=== PATIENT | female | born 1940 | race Caucasian/White ===

== ENCOUNTER 2016-11-24 19:05 | Inpatient (IN) ==
[2016-11-24] MEDS ORDERED: Ipratropium/Albuterol Neb 3 ML IH ONE (19:13)
[2016-11-24 19:45] LABS: Basophils % 0.2 %; Eosinophils # 0.1 K/mcL (0.0-0.6); Eosinophils % 1.3 %; Hematocrit 27.8 % (35.3-44.9); Hemoglobin 7.7 g/dL (11.5-15.4); Immature Granulocytes % 0.5 % (0-4); Lymphocytes # 0.8 K/mcL (0.6-4.6); Lymphocytes % 9.8 %; Mean Corpuscular HGB Conc 27.7 g/dL (31.6-35.5); Mean Corpuscular Hemoglobin 22.8 pg (28.0-33.3); Mean Corpuscular Volume 82.2 fL (83.0-100.0); Mean Platelet Volume 9.8 fL (9.4-12.4); Monocytes # 1.1 K/mcL (0.0-1.3); Monocytes % 13.1 %; Neutrophils # 6.4 K/mcL (1.6-8.9); Platelet Count 281 K/mcL (140-400); Red Blood Count 3.38 M/mcL (3.82-4.97); Red Cell Distribution Width 20.9 % (11.5-14.5); Segmented Neutrophils % 75.1 %
[2016-11-24 19:50] LABS: INR 1.1; Prothrombin Time 12.4 Seconds (9.4-12.1)
[2016-11-24 19:53] LABS: Activated Partial Thrombo Time 30.2 Seconds (26.0-36.0)
[2016-11-24 20:00] LABS: Alanine Aminotransferase 14 Units/L (0-55); Albumin 3.2 g/dL (3.5-5.0); Albumin/Globulin Ratio 0.9 (1.1-2.2); Alkaline Phosphatase 98 Units/L (38-126); Aspartate Amino Transferase 24 Units/L (5-34); BUN/Creatinine Ratio 34 (6-26); Bilirubin,Direct 0.2 mg/dL (0.0-0.5); Bilirubin,Indirect 0.2 mg/dL (0.0-1.2); Bilirubin,Total 0.4 mg/dL (0.2-1.2); Blood Urea Nitrogen 32 mg/dL (7-20); Calcium 9.5 mg/dL (8.6-10.8); Chloride 94 mEq/L (98-109); Globulin 3.5 g/dL (2.4-3.5); Glucose 136 mg/dL (70-99); Osmolality,Calculated 303 (280-300); Potassium 4.3 mEq/L (3.5-4.5); Sodium 142 mEq/L (136-145); Total Protein 6.7 g/dL (6.0-8.3); eGFR For African Americans > 60 (> 60); eGFR For Non-African Americans 59 (> 60)
[2016-11-24 20:02] LABS: Hypochromasia Present (Not Present)
[2016-11-24 20:03] LABS: Carbon Dioxide 41 mEq/L (19-29)
--- NOTE | 2016-11-24 20:03 | Emergency Department Note ---
Disposition Clinical Impression: Altered mental status Qualifiers: Altered mental status type: disorientation Qualified Code(s): R41.0 - Disorientation, unspecified CHF (congestive heart failure) Qualifiers: Congestive heart failure type: systolic Congestive heart failure chronicity: acute Qualified Code(s): I50.21 - Acute systolic (congestive) heart failure Disposition: Admitted As Inpatient Condition: Fair Altered Mental Status HPI - General Chief Complaint: ED Altered Mental Status Stated Complaint: AMS x 1 week Nursing Notes Reviewed: Yes Vital Signs Reviewed: Yes - History of Present Illness HPI Narrative: The patient presents with chief complaint of shortness of breath however according to family the main reason they brought her here was because of confusion. The patient has his shortness of breath for the last week with a cough which she is not sure if it is productive. His shortness of breath is worse with exertion. She has used her inhaler at home with minimal improvement in her symptoms and she denies any associated chest pain. The family states that she has been confused for the last week and I did review her past records showing a recent subdural and follow-up CT showing significant resolution and the patient does not have any localized numbness or weakness of the extremities. She does complain of swelling bilateral lower extremities which is chronic Social history: Smoker, no alcohol - Related Data Home Medications Medication Instructions Recorded Confirmed Alprazolam [Xanax 0.5 MG Tablet] 0.5 mg PO BID PRN 08/17/15 11/24/16 Atorvastatin Calcium [Lipitor] 20 mg PO QPM 08/17/15 11/24/16 Citalopram [CeleXA] 40 mg PO DAILY 08/17/15 11/24/16 Cyclobenzaprine HCl 5 mg PO BID 08/17/15 11/24/16 Furosemide [Lasix] 40 mg PO QAM 08/17/15 11/24/16 Gabapentin [Neurontin] 300 mg PO TID 08/17/15 11/24/16 Hydrochlorothiazide 25 mg PO DAILY 08/17/15 11/24/16 Lisinopril [Zestril] 20 mg PO QAM 08/17/15 11/24/16 Metformin HCl [Glucophage] 1,000 mg PO BID 08/17/15 11/24/16 Olmesartan Medoxomil [Benicar] 20 mg PO QAM 08/17/15 11/24/16 Pantoprazole Sodium [Protonix] 40 mg PO QAM 08/17/15 11/24/16 SitaGLIPtin [Januvia] 100 mg PO QAM 08/17/15 11/24/16 Sotalol [Betapace] 80 mg PO QAM 08/17/15 11/24/16 Temazepam [Restoril] 30 mg PO HS 08/17/15 11/24/16 Albuterol Neb [Proventil Neb] 2.5 mg IH TID PRN 11/02/15 11/24/16 Albuterol Sulfate [Proair Hfa] 2 puff IH Q4H PRN 11/02/15 11/24/16 Cyclobenzaprine [Flexeril] 10 mg PO HS 11/02/15 11/24/16 Fluticasone/Salmeterol [Advair 1 puff IH BID 11/02/15 11/24/16 250-50 Diskus] HYDROcodone/Acet 7.5/325 mg [[place] 1 tab PO TID PRN 11/02/15 11/24/16 7.5-325 mg] [place]-3/Dha/Epa/Fish Oil [Fish Oil 1,000 mg PO BID 11/02/15 11/24/16 Dr 500 mg Softgel] Potassium Chloride [K-Tab ER] 20 meq PO DAILY 11/02/15 11/24/16 Warfarin [Coumadin] 2 mg PO QPM 11/02/15 11/24/16 Oxygen 2 l .ROUTE AD PRN 07/18/16 11/24/16 Ipratropium [place] 1 spray NS DAILY 11/24/16 11/24/16 Allergies Allergy/AdvReac Type Severity Reaction Status Date / Time Penicillins Allergy arm Verified 11/24/16 20:32 swelling Review of Systems: Constitutional: No fever Vision: No blurred vision ENT: No rhinorrhea Respiratory: + cough Allergic: + sneeze/ allergies : No blood in urine GI: No blood in stool Hematologic: No bruising Dermatologic: No skin rash Musculoskeletal: No pain in the extremities Neuro: No numbness of the extremities Past Medical History - Past Medical History Medical history: Reports: atrial fibrillation, COPD, CVA, diabetes, hyperlipidemia, hypertension, other Surgical history: Reports: cataract, cholecystectomy, hysterectomy, pacemaker/ AICD, other Psychiatric history: Reports: anxiety, panic disorder - Social History Smoking Status: Current every day smoker Smokeless Tobacco Status: No Alcohol use: Reports: none Drug use: Reports: none Physical Exam CONSTITUTIONAL: Well-appearing; well-nourished; she is alert but does not know the year or name of the hospital. She does know the month. she does have minimal to moderate respiratory distress HEAD: Normocephalic; atraumatic. EYES: PERRL, EOMI, no scleral icterus NOSE: The nose is normal in appearance without rhinorrhea NECK: Supple without rigidity, no ZULLY RESP: Normal chest excursion with respiration; breath sounds bilateral tight breath sounds and bilateral crackles which are symmetric. No wheezing Abdomen: Non-distended; non-tender, soft, without rigidity, rebound or guarding SKIN: Normal for age and race; warm and dry; no apparent lesions, no rash NEUROLOGICAL: Patient is alert and oriented times three. Cranial nerves III- XII are intact. Sensory and motor functions are intact. Strength is 5/5 for flexion and extension in all 4 extremities. Patellar DTRS are equal and intact. Finger to nose testing is equal and normal bilaterally. Course Vital Signs Temperature 98.1 F 11/24/16 19:10 Pulse Rate 69 11/24/16 19:10 Respiratory Rate 20 11/24/16 19:10 Blood Pressure 125/55 11/24/16 19:10 O2 Sat by Pulse Oximetry 98 11/24/16 19:10 Temperature 98.1 F 11/24/16 19:15 Pulse Rate 69 11/24/16 22:33 Respiratory Rate 20 11/24/16 22:54 Blood Pressure 119/53 11/24/16 22:54 O2 Sat by Pulse Oximetry 100 11/24/16 22:33 Oxygen Delivery Oxygen Delivery Nasal Cannula Altered Mental Status - MDM Narrative Medical decision making narrative: I did review the patient's labs showing a microcytic anemia, she is a smoker and likely has severe COPD, she does use oxygen at home. She does have a CT of the brain ordered. 2007 I did review the patient's test results and the chest x -ray does show signs of congestive heart failure but the CAT scan of the brain does not have evidence of any bleeding. I did see the patient and the family again just a few minutes ago. She will be admitted. I did speak with the hospitalist doctor who accepted the patient for admission. He will be started on Lasix and nitroglycerin paste for the CHF and the hypoxemia from this could be causing some of her increased confusion. 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 2271 - Medical Records Medical records reviewed: Yes I reviewed the patient's medical records. - Lab Data Lab results reviewed: Yes I reviewed the patient's lab results. Result diagrams: 11/24/16 19:38 11/24/16 19:38 Lab Results 11/24/16 11/24/16 11/24/16 Range/Units 19:38 19:38 19:38 WBC 8.5 (4.3-11.1) K/mcL RBC 3.38 L (3.82-4.97) M/mcL Hgb 7.7 L (11.5-15.4) g/dL Hct 27.8 L (35.3-44.9) % MCV 82.2 L (83.0-100.0) fL MCH 22.8 L (28.0-33.3) pg MCHC 27.7 L (31.6-35.5) g/dL RDW 20.9 H (11.5-14.5) % Plt Count 281 (140-400) K/mcL MPV 9.8 (9.4-12.4) fL Immature Gran % 0.5 (0-4) % Seg Neutrophils % 75.1 % Lymphocytes % 9.8 % Monocytes % 13.1 % Eosinophils % 1.3 % Basophils % 0.2 % Neutrophils # 6.4 (1.6-8.9) K/mcL Lymphocytes # 0.8 (0.6-4.6) K/mcL Monocytes # 1.1 (0.0-1.3) K/mcL Eosinophils # 0.1 (0.0-0.6) K/mcL Basophils # 0.0 (0.0-0.2) K/mcL Hypochromasia Present A (Not Present) PT 12.4 H (9.4-12.1) Seconds INR 1.1 APTT 30.2 (26.0-36.0) Seconds Sodium 142 (136-145) mEq/L Potassium 4.3 (3.5-4.5) mEq/L Chloride 94 L (98-109) mEq/L Carbon Dioxide 41 H* (19-29) mEq/L BUN 32 H (7-20) mg/dL Creatinine 0.93 (0.57-1.11) mg/dL Est GFR ( Amer) > 60 (> 60) Est GFR (Non-Af Amer) 59 L (> 60) BUN/Creatinine Ratio 34 H (6-26) Glucose 136 H (70-99) mg/dL Calculated Osmolality 303 H (280-300) Calcium 9.5 (8.6-10.8) mg/dL Total Bilirubin 0.4 (0.2-1.2) mg/dL Direct Bilirubin 0.2 (0.0-0.5) mg/dL Indirect Bilirubin 0.2 (0.0-1.2) mg/dL AST 24 (5-34) Units/L ALT 14 (0-55) Units/L Alkaline Phosphatase 98 (38-126) Units/L Troponin I (0-0.03) ng/mL B-Natriuretic Peptide (0-100) pg/mL Serum Total Protein 6.7 (6.0-8.3) g/dL Albumin 3.2 L (3.5-5.0) g/dL Globulin 3.5 (2.4-3.5) g/dL Albumin/Globulin Ratio 0.9 L (1.1-2.2) Urine Color (Yellow) Urine Clarity (Clear) Urine pH (5.0-8.0) pH Units Ur Specific [place] (1.010-1.025) Urine Protein (Neg-Trace) mg/dL Urine Glucose (UA) (Normal) mg/dL Urine Ketones (Negative) mg/dL Urine Blood (Negative) Urine Nitrite (Negative) Urine Bilirubin (Negative) Urine Urobilinogen (Normal) mg/dL Ur Leukocyte Esterase (Negative) Ur Culture Indicated? (NO) 11/24/16 11/24/16 11/24/16 Range/Units 19:38 19:38 20:53 WBC (4.3-11.1) K/mcL RBC (3.82-4.97) M/mcL Hgb (11.5-15.4) g/dL Hct (35.3-44.9) % MCV (83.0-100.0) fL MCH (28.0-33.3) pg MCHC (31.6-35.5) g/dL RDW (11.5-14.5) % Plt Count (140-400) K/mcL MPV (9.4-12.4) fL Immature Gran % (0-4) % Seg Neutrophils % % Lymphocytes % % Monocytes % % Eosinophils % % Basophils % % Neutrophils # (1.6-8.9) K/mcL Lymphocytes # (0.6-4.6) K/mcL Monocytes # (0.0-1.3) K/mcL Eosinophils # (0.0-0.6) K/mcL Basophils # (0.0-0.2) K/mcL Hypochromasia (Not Present) PT (9.4-12.1) Seconds INR APTT (26.0-36.0) Seconds Sodium (136-145) mEq/L Potassium (3.5-4.5) mEq/L Chloride (98-109) mEq/L Carbon Dioxide (19-29) mEq/L BUN (7-20) mg/dL Creatinine (0.57-1.11) mg/dL Est GFR ( Amer) (> 60) Est GFR (Non-Af Amer) (> 60) BUN/Creatinine Ratio (6-26) Glucose (70-99) mg/dL Calculated Osmolality (280-300) Calcium (8.6-10.8) mg/dL Total Bilirubin (0.2-1.2) mg/dL Direct Bilirubin (0.0-0.5) mg/dL Indirect Bilirubin (0.0-1.2) mg/dL AST (5-34) Units/L ALT (0-55) Units/L Alkaline Phosphatase (38-126) Units/L Troponin I 0.02 (0-0.03) ng/mL B-Natriuretic Peptide 438 H (0-100) pg/mL Serum Total Protein (6.0-8.3) g/dL Albumin (3.5-5.0) g/dL Globulin (2.4-3.5) g/dL Albumin/Globulin Ratio (1.1-2.2) Urine Color Yellow (Yellow) Urine Clarity Clear (Clear) Urine pH 5.0 (5.0-8.0) pH Units Ur Specific [place] 1.011 (1.010-1.025) Urine Protein Negative (Neg-Trace) mg/dL Urine Glucose (UA) Normal (Normal) mg/dL Urine Ketones Negative (Negative) mg/dL Urine Blood Negative (Negative) Urine Nitrite Negative (Negative) Urine Bilirubin Negative (Negative) Urine Urobilinogen Normal (Normal) mg/dL Ur Leukocyte Esterase Negative (Negative) Ur Culture Indicated? NO (NO) TPA Checklist - LKW: 3-4.5 hrs Add. Contraindications Patient/family understanding: The patient/family members have been counseled and understood the risk, benefit , and alternatives of treatment.
[2016-11-24 21:15] LABS: Clarity,Urine Clear (Clear); Color,Urine Yellow (Yellow)
[2016-11-24 21:16] LABS: Bilirubin,Urine Negative (Negative); Blood,Urine Negative (Negative); Glucose,Urine (UA) Normal (Normal); Ketones,Urine Negative (Negative); Leukocyte Esterase,Urine Negative (Negative); Nitrite,Urine Negative (Negative); Protein,Urine Negative (Neg-Trace); Specific Gravity,Urine 1.011 (1.010-1.025); Urobilinogen,Urine Normal (Normal)
[2016-11-24] MEDS ORDERED: Furosemide 40 MG/4 ML VIAL IVP ONE (22:56)
[2016-11-24] MEDS ORDERED: Nitroglycerin 1 INCH/GM PACKET TP ONE (22:56)
[2016-11-25 03:30] LABS: ABG Base Excess 21.9 mEq/L (-2.0 to 3.0); ABG HCO3 49.4 mEQ/L (21-27); ABG Oxygen Saturation 97 % (95-98); ABG PH 7.41 pH Units (7.32-7.45); ABG PO2 95 mmHg (85-104); ABG TCO2 51.8 mEq/L (20-26)
[2016-11-25 03:31] LABS: ABG PCO2 78 mmHg (35-45); Blood Gas FiO2 28 %
--- NOTE | 2016-11-25 03:31 | Internal Med History&Physical ---
Date of Encounter: 11/25/16 Time of Encounter: 02:45 Assessment and Plan (1) Acute exacerbation of CHF (congestive heart failure) Current visit: Yes Status: Acute Recent echo showed LVEF of 65%. BNP is elevated. Treat with IV Lasix. Qualifiers: Congestive heart failure type: unspecified congestive heart failure type Qualified Code(s): I50.9 - Heart failure, unspecified (2) Subdural hematoma Current visit: No Status: Resolved Recent h/o subdural hematoma, which seemed to be resolved. warfarin was held. (3) Diabetes mellitus Current visit: Yes Status: Chronic Start sliding scale insulin Qualifiers: Diabetes mellitus type: type 2 Diabetes mellitus complication status: without complication Diabetes mellitus jail insulin use: without long term care social worker use Qualified Code(s): E11.9 - Type 2 diabetes mellitus without complications (4) Atrial fibrillation Current visit: Yes Status: Chronic EKG shows paced rhythm. COntinue home meds. Warfarin was held prior to this admission, due to recent subdural hematoma Qualifiers: Atrial fibrillation type: persistent Qualified Code(s): I48.1 - Persistent atrial fibrillation (5) Microcytic anemia Current visit: Yes Status: Acute Check Iron studies, B12, folate levels. Check fecal occult blood. Internal Medicine - H&P: HPI Chief complaint: Shortness of breath; confusion Admitted From: Emergency Dept Plans for Post Hospital Care: Home History of present illness: Ms. Fleming is a 76 year old female with h/o Atrial fibrillation, COPD, CVA, diabetes, hyperlipidemia, hypertension, recent subdural hematoma and follow-up CT showing significant resolution. The patient presented to the ER with chief complaint of shortness of breath but apparently the family reported the main reason they brought her here was because of confusion. Patient is confused and is not able to give clinical details. Shortness of breath and confusion for about a week, since she was discharged from the half-way. Shortness of breath is worse with exertion. She has used her inhaler at home with minimal improvement in her symptoms and she denies any associated chest pain. Reports cough with occasional sputum production. She denies fever or chills. Denies abdominal pain, dysuria, hematuria, diarrhea, nausea, vomiting. She was evaluated in the emergency department was taught to have CHF. She was given IV Lasix and is admitted to the hospitalist service for further workup and management. Past Med Surg Social Fam HX - Past Medical History Medical history: atrial fibrillation, cancer, COPD, CVA, diabetes, hyperlipidemia, hypertension, other Psychiatric history: anxiety, panic disorder - Past Surgical History Surgical History: cataract, cholecystectomy, hysterectomy, pacemaker/AICD, other - Social History Smoking Status: Current every day smoker Packs per day: 1 Smokeless Tobacco Status: No Alcohol use: none Drug use: none - Family History Mother Living Status: Hx Family Cardiac Disorders: Yes Hx Family Respiratory Disorders: No Hx Family Cancer: No Hx Family GI Disorders: No Hx Family Endocrine Disorder: Yes Hx Family Neuromuscular Disorders: No Hx Family Neurologic Disorders: No Hx Family HEENT Disorders: No Hx Family Autoimmune Disorders: No Father Living Status: Hx Family Cardiac Disorders: No Hx Family Respiratory Disorders: Yes (EMPHYSEMA.) Hx Family Cancer: Yes Hx Family GI Disorders: No Hx Family Endocrine Disorder: No Hx Family Neuromuscular Disorders: No Hx Family Neurologic Disorders: No Hx Family HEENT Disorders: No Hx Family Autoimmune Disorders: No Internal Medicine - H&P: Meds Alprazolam [Xanax 0.5 MG Tablet] 0.5 mg PO BID PRN 08/17/15 [History] Atorvastatin Calcium [Lipitor] 20 mg PO QPM 08/17/15 [History] Citalopram [CeleXA] 40 mg PO DAILY 08/17/15 [History] Cyclobenzaprine HCl 5 mg PO BID 08/17/15 [History] Furosemide [Lasix] 40 mg PO QAM 08/17/15 [History] Gabapentin [Neurontin] 300 mg PO TID 08/17/15 [History] Hydrochlorothiazide 25 mg PO DAILY 08/17/15 [History] Lisinopril [Zestril] 20 mg PO QAM 08/17/15 [History] Metformin HCl [Glucophage] 1,000 mg PO BID 08/17/15 [History] Olmesartan Medoxomil [Benicar] 20 mg PO QAM 08/17/15 [History] Pantoprazole Sodium [Protonix] 40 mg PO QAM 08/17/15 [History] SitaGLIPtin [Januvia] 100 mg PO QAM 08/17/15 [History] Sotalol [Betapace] 80 mg PO QAM 08/17/15 [History] Temazepam [Restoril] 30 mg PO HS 08/17/15 [History] Albuterol Neb [Proventil Neb] 2.5 mg IH TID PRN 11/02/15 [History] Albuterol Sulfate [Proair Hfa] 2 puff IH Q4H PRN 11/02/15 [History] Cyclobenzaprine [Flexeril] 10 mg PO HS 11/02/15 [History] Fluticasone/Salmeterol [Advair 250-50 Diskus] 1 puff IH BID 11/02/15 [History] HYDROcodone/Acet 7.5/325 mg [[place] 7.5-325 mg] 1 tab PO TID PRN 11/02/15 [ History] [place]-3/Dha/Epa/Fish Oil [Fish Oil Dr 500 mg Softgel] 1,000 mg PO BID 11/02/15 [ History] Potassium Chloride [K-Tab ER] 20 meq PO DAILY 11/02/15 [History] Warfarin [Coumadin] 2 mg PO QPM 11/02/15 [History] Oxygen 2 l .ROUTE AD PRN 07/18/16 [History] Ipratropium [place] 1 spray NS DAILY 11/24/16 [History] Allergies Penicillins Allergy (Verified 11/24/16 20:32) arm swelling All Systems PM: A 10-system review of systems was performed and is negative for pertinent findings except as documented above in the HPI. - Constitutional Vitals: Temp Pulse Resp BP Pulse Ox 97.4 F L 70 20 147/69 98 11/25/16 03:18 11/25/16 03:18 11/25/16 03:18 11/25/16 03:18 11/25/16 03:18 Exam: General: Not in acute distress at the time of my evaluation. Sitting in the bedside chair HEENT: Oral mucosa is dry. No conjunctival palor or scleral icterus Neck: No obvious neck swellings Lungs: B/L basal crackles present Cardiac: Irregular rhythm. No significant murmurs Abdomen: Obese, non tender. Bowel sounds present Genitourinary: Alvarez catheter in place Neurological: Confused. No gross localizing deficits Psych: Not aggressive or agitated Extremities:B/L leg edema Skin: No generalized rash Internal Med - H&P Results - Labs CBC & Chem 7: 11/29/16 03:43 11/29/16 03:43 - EKG Data -: EKG Interpreted by Myself - EKG Data EKG comments: Paced rhythm 11/25/16 07:09 - Impressions ITS Impressions Chest X-Ray 11/24/16 19:11 IMPRESSION: Findings are most consistent with mild CHF D/ / Mik Arnett MD / Mik Arnett MD Interpreting Provider: Mik Arnett MD Head CT 11/24/16 19:12 IMPRESSION: No acute intracranial abnormality. D/ / Marquis Hernandez MD / Marquis Hernandez MD Interpreting Provider: Marquis Hernandez MD
[2016-11-25] MEDS ORDERED: Naloxone 0.4 MG/ML INJ IVP PRN (06:36)
[2016-11-25] MEDS ORDERED: ALPRAZolam 0.5 MG TABLET PO PRN (06:40)
[2016-11-25] MEDS ORDERED: *HR* Dextrose 50 % in Water (Syg) 50 ML SYRINGE IVP PRN (07:06)
[2016-11-25] MEDS ORDERED: D5% in Water 1,000 ML IVC PRN (07:06)
[2016-11-25] MEDS ORDERED: Dextrose Gel 15 GM PO PRN ×2 (07:06)
[2016-11-25] MEDS: Insulin LISPRO 300 UNITS/3 ML VIAL SQ SCH ×4 (07:41→20:55)
[2016-11-25] MEDS: Budesonide/Formoterol 80/4.5 MDI IH SCH ×2 (07:53→20:03)
[2016-11-25] MEDS: Lisinopril 20 MG TABLET PO SCH (08:14)
[2016-11-25] MEDS: Gabapentin 300 MG CAPSULE PO SCH ×3 (08:15→21:35)
[2016-11-25] MEDS: Valsartan 160 MG TABLET PO SCH (08:15)
[2016-11-25] MEDS: *HR* Heparin 5,000 UNIT/ML VIAL SQ SCH ×2 (08:16→16:07)
[2016-11-25] MEDS: Furosemide 40 MG/4 ML VIAL IVP SCH ×2 (08:16→16:08)
[2016-11-25 09:36] LABS: Thyroid Stimulating Hormone 1.723 mcIU/mL (0.350-4.840)
--- NOTE | 2016-11-25 10:18 | Event Note ---
Date of Encounter: 11/25/16 Time of Encounter: 09:00 Patient seen and examined. On examination, patient sitting upright in her bed. Patient complaining of pain to her neck and back consistent with her normal arthritic pain. She states she was unable to get any sleep last night. She does not remember if she breakfast. She is not sure what year it is. She is aware that she is in [facility] for the most part, she is able to answer simple questions.. No family is present so I do not know what her baseline is. Chest x-ray consistent with mild CHF, she denies shortness of breath. Head CT negative. Urinalysis negative. Profound anemia noted which appears new and worsened since June 2016. Hemoglobin currently 7.7. Alvarez catheter in place, gross hematuria noted. Patient has a history of bladder cancer with tumor removal on 05/18/[address] Calixto. Will investigate other causes of anemia with guiaic, folate, B12, iron panel though I suspect her hematuria may be playing a lama role. She is unable to state whether or not she has noticed blood in her urine but she states that she does not think so. We will bring urology on board. We will continue to trend her blood counts and transfuse if indicated. Vital signs are stable. CO2 retention also noted. On examination, fair to good aeration throughout. We will continue to trend her ABGs. ITS Impressions Chest X-Ray 11/24/16 19:11 IMPRESSION: Findings are most consistent with mild CHF D/ / Mik Arnett MD / Mik Arnett MD Interpreting Provider: Mik Arnett MD Elecronically signed by Mik Arnett MD on 11/24/2016 20:25:[address] 11/24/16 19:12 IMPRESSION: No acute intracranial abnormality. D/ / Marquis Hernandez MD / Marquis Hernandez MD Interpreting Provider: Marquis Hernandez MD
[2016-11-25 11:21] LABS: Folate 12.3 ng/mL (7.0-31.4)
[2016-11-25 11:27] LABS: Hematocrit 26.9 % (35.3-44.9); Hemoglobin 7.5 g/dL (11.5-15.4)
--- NOTE | 2016-11-25 12:56 | Urology - Consult Note ---
Date of Encounter: 11/25/16 Time of Encounter: 12:54 - Assessment and Plan (1) Hematuria Current Visit: No Status: Acute Assessment and plan: 76-year-old woman with mild hematuria. At this point, she does not require a three-way catheter and I think her urine will clear with just standard drainage. We will closely monitor. I'm not sure if the hematuria is the source for her anemia. She is going to be transfused today. I will follow along. Urology CN:HPI Consult date: 11/25/16 Reason for consult Urology: Gross Hematuria Requesting physician: Anaya Cardenas History of present illness: 76-year-old woman with a history of low-grade low stage bladder cancer from May 18, 2016 was admitted for anemia. She had a catheter placed. Her initial urine on November 24, 2016 was otherwise clear. Overnight, she began to have some hematuria. She denies having any hematuria prior to this hospital stay since her operation. She denies any abdominal pain or lightheadedness. Past Med Surg Social Fam HX - Past Medical History Medical history: atrial fibrillation, cancer, COPD, CVA, diabetes, hyperlipidemia, hypertension, other Psychiatric history: anxiety, panic disorder - Past Surgical History Surgical History: cataract, cholecystectomy, hysterectomy, pacemaker/AICD, other - Social History Smoking Status: Current every day smoker Packs per day: 1 Smokeless Tobacco Status: No Alcohol use: none Drug use: none - Family History Mother Living Status: Hx Family Cardiac Disorders: Yes Hx Family Respiratory Disorders: No Hx Family Cancer: No Hx Family GI Disorders: No Hx Family Endocrine Disorder: Yes Hx Family Neuromuscular Disorders: No Hx Family Neurologic Disorders: No Hx Family HEENT Disorders: No Hx Family Autoimmune Disorders: No Father Living Status: Hx Family Cardiac Disorders: No Hx Family Respiratory Disorders: Yes (EMPHYSEMA.) Hx Family Cancer: Yes Hx Family GI Disorders: No Hx Family Endocrine Disorder: No Hx Family Neuromuscular Disorders: No Hx Family Neurologic Disorders: No Hx Family HEENT Disorders: No Hx Family Autoimmune Disorders: No Medications and Allergies Alprazolam [Xanax 0.5 MG Tablet] 0.5 mg PO BID PRN 08/17/15 [History] Atorvastatin Calcium [Lipitor] 20 mg PO QPM 08/17/15 [History] Citalopram [CeleXA] 40 mg PO DAILY 08/17/15 [History] Cyclobenzaprine HCl 5 mg PO BID 08/17/15 [History] Furosemide [Lasix] 40 mg PO QAM 08/17/15 [History] Gabapentin [Neurontin] 300 mg PO TID 08/17/15 [History] Hydrochlorothiazide 25 mg PO DAILY 08/17/15 [History] Lisinopril [Zestril] 20 mg PO QAM 08/17/15 [History] Metformin HCl [Glucophage] 1,000 mg PO BID 08/17/15 [History] Olmesartan Medoxomil [Benicar] 20 mg PO QAM 08/17/15 [History] Pantoprazole Sodium [Protonix] 40 mg PO QAM 08/17/15 [History] SitaGLIPtin [Januvia] 100 mg PO QAM 08/17/15 [History] Sotalol [Betapace] 80 mg PO QAM 08/17/15 [History] Temazepam [Restoril] 30 mg PO HS 08/17/15 [History] Albuterol Neb [Proventil Neb] 2.5 mg IH TID PRN 11/02/15 [History] Albuterol Sulfate [Proair Hfa] 2 puff IH Q4H PRN 11/02/15 [History] Cyclobenzaprine [Flexeril] 10 mg PO HS 11/02/15 [History] Fluticasone/Salmeterol [Advair 250-50 Diskus] 1 puff IH BID 11/02/15 [History] HYDROcodone/Acet 7.5/325 mg [[place] 7.5-325 mg] 1 tab PO TID PRN 11/02/15 [ History] [place]-3/Dha/Epa/Fish Oil [Fish Oil Dr 500 mg Softgel] 1,000 mg PO BID 11/02/15 [ History] Potassium Chloride [K-Tab ER] 20 meq PO DAILY 11/02/15 [History] Warfarin [Coumadin] 2 mg PO QPM 11/02/15 [History] Oxygen 2 l .ROUTE AD PRN 07/18/16 [History] Ipratropium [place] 1 spray NS DAILY 11/24/16 [History] Allergies Penicillins Allergy (Verified 11/24/16 20:32) arm swelling Review of Systems - Constitutional no chills, no fever(s) - EENT Nose, mouth and throat: no dizziness - Cardiovascular no chest pain - Respiratory no dyspnea - Gastrointestinal no nausea, no vomiting - Genitourinary Genitourinary: hematuria, no flank pain - Musculoskeletal no back pain - Integumentary no erythema, no rash - Neurological no weakness - Psychiatric no suicidal ideation - Hematologic/Lymphatic no easy bleeding - Allergic/Immunologic no wheezing Exam Initial Vital Signs Temp Pulse Resp BP Pulse Ox 98.1 F 69 20 125/55 98 11/24/16 19:10 11/24/16 19:10 11/24/16 19:10 11/24/16 19:10 11/24/16 19:10 - General physical appearance Present: well developed, well nourished, no distress - Eyes Absent: icteric - ENT Present: normal nares - Neck Present: trachea midline - Respiratory Present: normal respiratory effort - Cardiovascular Cardiovascular exam IM: RRR - Abdomen Abdomen: Present: soft - Genitourinary Present: other (Alvarez catheter in place with light pink-colored urine.) Urology Results - Labs 11/25/16 11:21 11/24/16 19:38 Abnormal lab results RBC 3.38 M/mcL (3.82-4.97) L 11/24/16 19:38 Hgb 7.5 g/dL (11.5-15.4) L 11/25/16 11:21 Hct 26.9 % (35.3-44.9) L 11/25/16 11:21 MCV 82.2 fL (83.0-100.0) L 11/24/16 19:38 MCH 22.8 pg (28.0-33.3) L 11/24/16 19:38 MCHC 27.7 g/dL (31.6-35.5) L 11/24/16 19:38 RDW 20.9 % (11.5-14.5) H 11/24/16 19:38 Hypochromasia Present (Not Present) A 11/24/16 19:38 PT 12.4 Seconds (9.4-12.1) H 11/24/16 19:38 ABG pCO2 78 mmHg (35-45) H* 11/25/16 03:22 ABG HCO3 49.4 mEQ/L (21-27) H 11/25/16 03:22 ABG Total CO2 51.8 mEq/L (20-26) H 11/25/16 03:22 ABG Base Excess 21.9 mEq/L (-2.0 to 3.0) H 11/25/16 03:22 Chloride 94 mEq/L (98-109) L 11/24/16 19:38 Carbon Dioxide 41 mEq/L (19-29) H* 11/24/16 19:38 BUN 32 mg/dL (7-20) H 11/24/16 19:38 Est GFR (Non-Af Amer) 59 (> 60) L 11/24/16 19:38 BUN/Creatinine Ratio 34 (6-26) H 11/24/16 19:38 Glucose 136 mg/dL (70-99) H 11/24/16 19:38 POC Glucose 151 (58-89) H 11/25/16 11:01 Calculated Osmolality 303 (280-300) H 11/24/16 19:38 Iron 18 mcg/dL (50-170) L 11/25/16 08:55 % Saturation 3 % (15-50) L 11/25/16 08:55 Transferrin 385 mg/dL (180-382) H 11/25/16 08:55 B-Natriuretic Peptide 438 pg/mL (0-100) H 11/24/16 19:38 Albumin 3.2 g/dL (3.5-5.0) L 11/24/16 19:38 Albumin/Globulin Ratio 0.9 (1.1-2.2) L 11/24/16 19:38 Thyroid panel 11/25/16 Range/Units 08:55 TSH 1.723 (0.350-4.840) mcIU/mL Pituitary panel 11/25/16 Range/Units 08:55 TSH 1.723 (0.350-4.840) mcIU/mL All other labs normal. Consult Discharge Plan - Plan Referrals: Andres Gleason MD [Primary Care Provider] - (hospital follow up webrequested ) NO,PCP [Non-Partnered Physician] -
[2016-11-25] MEDS ORDERED: NON-FORMULARY MEDICATION 1 EACH EACH (Oxygen [Oxygen] 2 L) PRN (13:22)
[2016-11-25] MEDS ORDERED: *HR* Morphine 2 MG/ML SYRINGE IVP PRN (13:24)
[2016-11-25] MEDS ORDERED: Acetaminophen 325 MG TABLET PO PRN (13:24)
[2016-11-25] MEDS: *HR* HYDROcodone/Acet 7.5/325 mg TABLET PO PRN (13:58)
[2016-11-25 17:17] LABS: ABG Base Excess 26.2 mEq/L (-2.0 to 3.0); ABG HCO3 53.5 mEQ/L (21-27); ABG Oxygen Saturation 97 % (95-98); ABG PH 7.45 pH Units (7.32-7.45); ABG PO2 83 mmHg (85-104); ABG TCO2 55.9 mEq/L (20-26)
[2016-11-25 17:19] LABS: ABG PCO2 77 mmHg (35-45); Blood Gas FiO2 28 %
[2016-11-25] MEDS: Temazepam 15 MG CAPSULE PO SCH (21:34)
[2016-11-26] MEDS: *HR* Heparin 5,000 UNIT/ML VIAL SQ SCH ×2 (02:44→08:14)
[2016-11-26 05:45] LABS: Basophils % 0.3 %; Eosinophils # 0.1 K/mcL (0.0-0.6); Eosinophils % 1.7 %; Hematocrit 25.6 % (35.3-44.9); Hemoglobin 7.2 g/dL (11.5-15.4); Immature Granulocytes % 0.3 % (0-4); Lymphocytes # 1.3 K/mcL (0.6-4.6); Lymphocytes % 19.4 %; Mean Corpuscular HGB Conc 28.1 g/dL (31.6-35.5); Mean Corpuscular Hemoglobin 22.2 pg (28.0-33.3); Mean Platelet Volume 9.6 fL (9.4-12.4); Monocytes % 15.8 %; Neutrophils # 4.1 K/mcL (1.6-8.9); Platelet Count 254 K/mcL (140-400); Red Blood Count 3.24 M/mcL (3.82-4.97); Red Cell Distribution Width 20.7 % (11.5-14.5); Segmented Neutrophils % 62.5 %
[2016-11-26 06:04] LABS: BUN/Creatinine Ratio 31 (6-26); Blood Urea Nitrogen 24 mg/dL (7-20); Calcium 9.1 mg/dL (8.6-10.8); Chloride 90 mEq/L (98-109); Glucose 87 mg/dL (70-99); Osmolality,Calculated 295 (280-300); Potassium 3.4 mEq/L (3.5-4.5); Sodium 141 mEq/L (136-145); eGFR For African Americans > 60 (> 60); eGFR For Non-African Americans > 60 (> 60)
[2016-11-26 06:05] LABS: Anisocytosis 1+ (Not Present); Hypochromasia Present (Not Present); Platelet Estimate Normal (Normal)
[2016-11-26 06:10] LABS: Carbon Dioxide 47 mEq/L (19-29)
--- NOTE | 2016-11-26 06:50 | Urology Progress Note ---
Date of Encounter: 11/26/16 Time of Encounter: 06:49 - Assessment and Plan (1) Hematuria Current Visit: No Status: Acute Assessment and plan: 76 year old woman with hematuria. Urine is getting more clear. Will continue catheter to maximize drainage. Will follow along. Plan for outpatient cystoscopy. Progress Note Narrative: Doing well this morning. Up to chair, eating breakfast. Urine has been draining a light peach color. Objective Initial Vital Signs Temp Pulse Resp BP Pulse Ox 98.1 F 69 20 125/55 98 11/24/16 19:10 11/24/16 19:10 11/24/16 19:10 11/24/16 19:10 11/24/16 19:10 - General physical appearance Present: well developed, well nourished, no distress - Respiratory Present: normal respiratory effort - Abdomen Present: soft - Genitourinary Urine Appearance: Present: Hematuria (light peach.) - Labs 11/26/16 04:49 11/26/16 04:49 Diabetes panel 11/26/16 Range/Units 04:49 Sodium 141 (136-145) mEq/L Potassium 3.4 L (3.5-4.5) mEq/L Chloride 90 L (98-109) mEq/L Carbon Dioxide 47 H* (19-29) mEq/L BUN 24 H (7-20) mg/dL Creatinine 0.77 (0.57-1.11) mg/dL Glucose 87 (70-99) mg/dL Calcium 9.1 (8.6-10.8) mg/dL Thyroid panel 11/25/16 Range/Units 08:55 TSH 1.723 (0.350-4.840) mcIU/mL Calcium panel 11/26/16 Range/Units 04:49 Calcium 9.1 (8.6-10.8) mg/dL Pituitary panel 11/25/16 11/26/16 Range/Units 08:55 04:49 Sodium 141 (136-145) mEq/L Potassium 3.4 L (3.5-4.5) mEq/L Chloride 90 L (98-109) mEq/L Carbon Dioxide 47 H* (19-29) mEq/L BUN 24 H (7-20) mg/dL Creatinine 0.77 (0.57-1.11) mg/dL Glucose 87 (70-99) mg/dL Calcium 9.1 (8.6-10.8) mg/dL TSH 1.723 (0.350-4.840) mcIU/mL Adrenal panel 11/26/16 Range/Units 04:49 Sodium 141 (136-145) mEq/L Potassium 3.4 L (3.5-4.5) mEq/L Chloride 90 L (98-109) mEq/L Carbon Dioxide 47 H* (19-29) mEq/L BUN 24 H (7-20) mg/dL Creatinine 0.77 (0.57-1.11) mg/dL Glucose 87 (70-99) mg/dL Calcium 9.1 (8.6-10.8) mg/dL Consult Discharge Plan - Plan Referrals: Andres Gleason MD [Primary Care Provider] - (hospital follow up webrequested ) NO,PCP [Non-Partnered Physician] -
[2016-11-26] MEDS: Budesonide/Formoterol 80/4.5 MDI IH SCH ×2 (07:57→19:57)
[2016-11-26] MEDS: Insulin LISPRO 300 UNITS/3 ML VIAL SQ SCH ×4 (08:06→21:26)
[2016-11-26] MEDS: Furosemide 40 MG/4 ML VIAL IVP SCH ×2 (08:13→16:48)
[2016-11-26] MEDS: Gabapentin 300 MG CAPSULE PO SCH ×3 (08:14→21:14)
[2016-11-26] MEDS: Valsartan 160 MG TABLET PO SCH (08:14)
[2016-11-26] MEDS: Lisinopril 20 MG TABLET PO SCH (08:14)
[2016-11-26] MEDS: *HR* HYDROcodone/Acet 7.5/325 mg TABLET PO PRN ×2 (08:18→16:48)
--- NOTE | 2016-11-26 14:20 | Internal Med Progress Note ---
Date of Encounter: 11/26/16 Time of Encounter: 10:30 - Assessment and plan (1) Altered mental status Current Visit: Yes Status: Resolved Assessment and plan: Patient is now alert and oriented 3 and back to her baseline. Patient stating she feels like herself again. She is now denying shortness of breath above her norm. Chest x-ray revealing mild CHF and the patient has been successfully diuresed. No pedal edema. Head CT negative. Urinalysis negative. Initial concern for hematuria given that she had a bladder tumor removed in April 2016 however her urine has cleared. Urology on board. She is retaining some CO2 but is compensated and stable. Awaiting stool guaiac, we will trend blood counts. Disposition unclear at this time. Appears as if she was admitted and a ECF for rehabilitation and was only home for a week when she was brought back in. ITS Impressions Chest X-Ray 11/24/16 19:11 IMPRESSION: Findings are most consistent with mild CHF D/ / Mik Arnett MD / Mik Arnett MD Interpreting Provider: Mik Arnett MD Head CT 11/24/16 19:12 IMPRESSION: No acute intracranial abnormality. D/ / Marquis Hernandez MD / Marquis Hernandez MD Interpreting Provider: Marquis Hernandez MD (2) Anemia Current Visit: Yes Status: Chronic Assessment and plan: Chronic since 2014 but has really trended down over the last month. B12, folate , TSH all normal. Iron deficiency noted. Guaiac still pending. Patient is much more alert and she is now oriented 3 and back to her baseline. She denies any weakness or lightheadedness. No indication to transfuse at this time , will trend and reevaluate tomorrow. (3) Hematuria Current Visit: No Status: Resolved Assessment and plan: Resolving. We will continue to trend. Does not appear to be the source of her anemia. Urology on board. (4) Atrial fibrillation Current Visit: No Status: Chronic Assessment and plan: Rate controlled. Coumadin held at this time due to anemia of unclear etiology. Qualifiers: Atrial fibrillation type: persistent Qualified Code(s): I48.1 - Persistent atrial fibrillation (5) Acute on chronic respiratory failure Current Visit: No Status: Chronic Assessment and plan: Patient states she is on 3 L per nasal cannula continuously at home. Currently on 2 L here. She currently denies shortness of breath above her norm. (6) CHF (congestive heart failure) Current Visit: Yes Status: Acute Assessment and plan: Her most recent echocardiogram was from October 2015. Ejection fraction 65% with indeterminate diastolic function secondary to a ventricularly paced rhythm. She is on 2 diuretics at home, acute on chronic diastolic heart failure. She is currently euvolemic on examination. We will continue to trend. Qualifiers: Congestive heart failure type: diastolic Congestive heart failure chronicity: acute on chronic Qualified Code(s): I50.33 - Acute on chronic diastolic (congestive) heart failure (7) Diabetes mellitus Current Visit: Yes Status: Chronic Assessment and plan: Appears controlled, recent A1c in April 2016 5.5%. Continue sliding scale while admitted. (8) Hypertension Current Visit: Yes Status: Chronic Assessment and plan: Controlled. At home, she is on lisinopril 20 mg daily, HCTZ 25 mg daily, furosemide 40 mg daily. We will continue to trend (9) DVT prophylaxis Current Visit: Yes Status: Acute Assessment and plan: Pharmacologic prophylaxis secondary to anemia of unknown etiology. IPC's ordered. Coumadin also held. - Subjective Interval history: Patient seen and examined. On examination, patient sitting upright in her chair preparing to bathe. Patient stating she feels much better and states that she feels like herself again. She denies shortness of breath or pain. - Constitutional Vitals: Temp Pulse Resp BP Pulse Ox 97.6 F 73 16 105/66 98 11/26/16 11:20 11/26/16 11:20 11/26/16 11:20 11/26/16 11:20 11/26/16 11:20 General appearance: Present: A&O X 3, pleasant, no acute distress, answers questions appropriately - Head Head exam: Present: atraumatic, normocephalic - Eye Eye exam: Present: PERRL, conjuntiva pink, sclera anicteric Pupils: Present: PERRL - Neck Neck exam general surgery: Present: supple, trachea midline. Absent: lymphadenopathy - Respiratory Respiratory exam: Present: chest wall tenderness (posterior left), decreased breath sounds. Absent: accessory muscle use, rales, respiratory distress, rhonchi, wheezes Additional comments: severe kyphosis - Cardiovascular Cardiovascular exam: Present: irregular rhythm, RRR, +S1, +S2. Absent: diastolic murmur, gallop, rubs, systolic murmur - GI/Abdominal GI/Abdominal exam: Present: normal bowel sounds, soft, no peritoneal signs. Absent: distended, tenderness - Extremities Exam Extremities exam: Present: warm, radial pulses palpable and symetrical. Absent : calf tenderness, cyanotic, pedal edema - Neurological Exam Neurological exam: Present: alert, CN II-XII intact, oriented X3, no focal deficits, strengths equal and symetr throughout. Absent: pronater drift, facial droop, speech deficit - Skin Skin exam: Present: dry, intact, pallor, warm Internal Medicine: Result - Labs CBC & Chem 7: 11/26/16 04:49 11/26/16 04:49 Labs: Short CBC 11/26/16 Range/Units 04:49 WBC 6.5 (4.3-11.1) K/mcL Hgb 7.2 L (11.5-15.4) g/dL Hct 25.6 L (35.3-44.9) % Plt Count 254 (140-400) K/mcL Neutrophils # 4.1 (1.6-8.9) K/mcL BMP 11/26/16 04:49 Sodium 141 Potassium 3.4 L Chloride 90 L Carbon Dioxide 47 H* BUN 24 H Creatinine 0.77 Glucose 87 Calcium 9.1 - ABG Interpretation ABG results: ABG ABG pH 7.45 pH Units (7.32-7.45) 11/25/16 17:05 ABG pCO2 77 mmHg (35-45) H* 11/25/16 17:05 ABG pO2 83 mmHg (85-104) L 11/25/16 17:05 ABG O2 Saturation 97 % (95-98) 11/25/16 17:05 PT/INR, D-dimer PT 12.4 Seconds (9.4-12.1) H 11/24/16 19:38 Consult Discharge Plan - Plan Referrals: Andres Gleason MD [Primary Care Provider] - (hospital follow up webrequested ) NO,PCP [Non-Partnered Physician] -
[2016-11-26] MEDS: Temazepam 15 MG CAPSULE PO SCH (21:14)
[2016-11-27] MEDS ORDERED: 0.9 % Sodium Chloride 500 ML IVC ONE (04:43)
[2016-11-27 05:43] LABS: Hemoglobin 6.8 g/dL (11.5-15.4); Immature Granulocytes % 0.3 % (0-4)
[2016-11-27 05:45] LABS: Basophils % 0.5 %; Eosinophils # 0.2 K/mcL (0.0-0.6); Eosinophils % 2.3 %; Hematocrit 23.8 % (35.3-44.9); Lymphocytes # 1.1 K/mcL (0.6-4.6); Lymphocytes % 16.2 %; Mean Corpuscular HGB Conc 28.6 g/dL (31.6-35.5); Mean Corpuscular Volume 80.4 fL (83.0-100.0); Mean Platelet Volume 9.4 fL (9.4-12.4); Monocytes # 1.1 K/mcL (0.0-1.3); Monocytes % 16.7 %; Neutrophils # 4.2 K/mcL (1.6-8.9); Platelet Count 224 K/mcL (140-400); Red Blood Count 2.96 M/mcL (3.82-4.97); Red Cell Distribution Width 20.6 % (11.5-14.5)
[2016-11-27 05:59] LABS: BUN/Creatinine Ratio 38 (6-26); Blood Urea Nitrogen 30 mg/dL (7-20); Calcium 8.9 mg/dL (8.6-10.8); Chloride 88 mEq/L (98-109); Glucose 72 mg/dL (70-99); Osmolality,Calculated 293 (280-300); Potassium 3.5 mEq/L (3.5-4.5); Sodium 139 mEq/L (136-145); eGFR For African Americans > 60 (> 60); eGFR For Non-African Americans > 60 (> 60)
[2016-11-27 06:02] LABS: Carbon Dioxide 45 mEq/L (19-29)
[2016-11-27 06:14] LABS: Anisocytosis 2+ (Not Present); Hypochromasia Present (Not Present); Microcytosis Present (Not Present); Platelet Estimate Normal (Normal); Poikilocytosis 2+ (Not Present); Polychromasia 1+ (Not Present)
--- NOTE | 2016-11-27 06:48 | Urology Progress Note ---
Date of Encounter: 11/27/16 Time of Encounter: 06:46 - Assessment and Plan (1) Hematuria Current Visit: No Status: Resolved Assessment and plan: Hematuria has improved. Okay to remove catheter when no longer needed by primary team. She can follow up with Dr. Calixto in 1-2 weeks. will sign off. Call if questions. Progress Note Narrative: Doing well. Urine has cleared. No issues at this time. Objective Initial Vital Signs Temp Pulse Resp BP Pulse Ox 98.1 F 69 20 125/55 98 11/24/16 19:10 11/24/16 19:10 11/24/16 19:10 11/24/16 19:10 11/24/16 19:10 - General physical appearance Present: well developed, well nourished, no distress - Respiratory Present: normal respiratory effort - Abdomen Present: soft - Genitourinary Present: normal external genitalia Urine Appearance: Present: Clear - Labs 11/27/16 05:28 11/27/16 05:28 Diabetes panel 11/27/16 Range/Units 05:28 Sodium 139 (136-145) mEq/L Potassium 3.5 (3.5-4.5) mEq/L Chloride 88 L (98-109) mEq/L Carbon Dioxide 45 H* (19-29) mEq/L BUN 30 H (7-20) mg/dL Creatinine 0.80 (0.57-1.11) mg/dL Glucose 72 (70-99) mg/dL Calcium 8.9 (8.6-10.8) mg/dL Calcium panel 11/27/16 Range/Units 05:28 Calcium 8.9 (8.6-10.8) mg/dL Pituitary panel 11/27/16 Range/Units 05:28 Sodium 139 (136-145) mEq/L Potassium 3.5 (3.5-4.5) mEq/L Chloride 88 L (98-109) mEq/L Carbon Dioxide 45 H* (19-29) mEq/L BUN 30 H (7-20) mg/dL Creatinine 0.80 (0.57-1.11) mg/dL Glucose 72 (70-99) mg/dL Calcium 8.9 (8.6-10.8) mg/dL Adrenal panel 11/27/16 Range/Units 05:28 Sodium 139 (136-145) mEq/L Potassium 3.5 (3.5-4.5) mEq/L Chloride 88 L (98-109) mEq/L Carbon Dioxide 45 H* (19-29) mEq/L BUN 30 H (7-20) mg/dL Creatinine 0.80 (0.57-1.11) mg/dL Glucose 72 (70-99) mg/dL Calcium 8.9 (8.6-10.8) mg/dL Consult Discharge Plan - Plan Referrals: Andres Gleason MD [Primary Care Provider] - (hospital follow up webrequested ) NO,PCP [Non-Partnered Physician] -
[2016-11-27] MEDS: Insulin LISPRO 300 UNITS/3 ML VIAL SQ SCH ×4 (07:28→23:47)
[2016-11-27] MEDS: Budesonide/Formoterol 80/4.5 MDI IH SCH ×2 (08:02→20:35)
[2016-11-27] MEDS: Gabapentin 300 MG CAPSULE PO SCH ×3 (08:53→20:22)
--- NOTE | 2016-11-27 08:56 | Electrocardiograph Report ---
[place] [id number] Test Date: 2016-11-24 Pat Name: Florina Fleming Department: 102 Room: 3B Gender: F Chief Unit Forester: : 1940 Requested By: Michele Crane Order Number: [id number] Reading MD: Jericho Bradley MD Measurements Intervals [place]'Brien Rate: 70 P: CA: 0 QRS: 247 QRSD: 128 T: 87 QT: 429 QTc: 450 Interpretive Statements [employer]LECT[employer]ER Electronically Signed On 11-27-2016 8:54:22 EDT by Jericho Bradley MD
[2016-11-27] MEDS ORDERED: 0.9 % Sodium Chloride 250 ML ONE ×2 (11:22→18:17)
[2016-11-27] MEDS: *HR* HYDROcodone/Acet 7.5/325 mg TABLET PO PRN ×2 (14:24→20:22)
[2016-11-27] MEDS ORDERED: Furosemide 40 MG/4 ML VIAL IVP ONE (15:25)
--- NOTE | 2016-11-27 18:12 | Internal Med Progress Note ---
Date of Encounter: 11/27/16 Time of Encounter: 14:30 - Assessment and plan (1) Altered mental status Current Visit: Yes Status: Resolved Assessment and plan: Patient is now alert and oriented 3 and back to her baseline. Patient stating she feels like herself again. She had some pain earlier on in the afternoon so she had pain medications when I spoke with her, she was a bit drowsy was still able to answer questions appropriately. She had mild to moderate retractions noted. Her abdomen is distended with hypoactive bowel sounds. Abdomen is nontender. Breath sounds slightly decreased with rhonchi noted, suspect possible fluid overload after the first unit of her packed red blood cells so will give one-time dose of IV Lasix now, and monitor her closely. 11/26/16 She is now denying shortness of breath above her norm. Chest x-ray revealing mild CHF and the patient has been successfully diuresed. No pedal edema. Head CT negative. Urinalysis negative. Initial concern for hematuria given that she had a bladder tumor removed in April 2016 however her urine has cleared. Urology on board. She is retaining some CO2 but is compensated and stable. Awaiting stool guaiac, we will trend blood counts. Disposition unclear at this time. Appears as if she was admitted and a ECF for rehabilitation and was only home for a week when she was brought back in. ITS Impressions Chest X-Ray 11/24/16 19:11 IMPRESSION: Findings are most consistent with mild CHF D/ / Mik Arnett MD / Mik Arnett MD Interpreting Provider: Mik Arnett MD Head CT 11/24/16 19:12 IMPRESSION: No acute intracranial abnormality. D/ / Marquis Hernandez MD / Marquis Hernandez MD Interpreting Provider: Marquis Hernandez MD (2) Anemia Current Visit: Yes Status: Chronic Assessment and plan: Chronic since 2014 but has really trended down over the last month. B12, folate , TSH all normal. Iron deficiency noted. Stool guaiac is still pending. Patient has been very flatulent but has not had a bowel movement yet. On examination, patient's abdomen distended with hyperactive bowel sounds. Will obtain abdominal CT. Prior to receiving pain medication, patient was alert and oriented 3 and back to her baseline. She was slightly groggy during my assessment of her but was still oriented 3. She denies any weakness or lightheadedness. Her counts dropped again today. No IV fluids given so not hemodilutional. We will transfuse with 2 units of packed red blood cells given that she is symptomatic with generalized weakness and dyspnea on exertion. We will bring GI on board. (3) Hematuria Current Visit: No Status: Resolved Assessment and plan: Resolved. We will continue to trend. Does not appear to be the source of her anemia. Urology on board and have cleared her for outpatient follow-up.. (4) Atrial fibrillation Current Visit: No Status: Chronic Assessment and plan: Rate controlled. Coumadin held at this time due to anemia of unclear etiology- IPC's ordered. Qualifiers: Atrial fibrillation type: persistent Qualified Code(s): I48.1 - Persistent atrial fibrillation (5) Acute on chronic respiratory failure Current Visit: No Status: Chronic Assessment and plan: Patient states she is on 3 L per nasal cannula continuously at home. Currently on 2 L here- increased to her baseline 3L. She currently denies shortness of breath above her norm. (6) CHF (congestive heart failure) Current Visit: Yes Status: Acute Assessment and plan: Her most recent echocardiogram was from October 2015. Ejection fraction 65% with indeterminate diastolic function secondary to a ventricularly paced rhythm. She is on 2 diuretics at home, acute on chronic diastolic heart failure. She is currently euvolemic on examination. Lower extremities with trace, nonpitting edema that is consistent with her norm. She does appear slightly fluid overloaded after receiving her first unit of blood, will give IV Lasix and monitor. Renal function is normal today. We will continue to trend. Qualifiers: Congestive heart failure type: diastolic Congestive heart failure chronicity: acute on chronic Qualified Code(s): I50.33 - Acute on chronic diastolic (congestive) heart failure (7) Diabetes mellitus Current Visit: Yes Status: Chronic Assessment and plan: Appears controlled, recent A1c in April 2016 5.5%. Continue sliding scale while admitted. (8) Hypertension Current Visit: Yes Status: Chronic Assessment and plan: Controlled. At home, she is on lisinopril 20 mg daily, HCTZ 25 mg daily, furosemide 40 mg daily. We will continue to trend (9) DVT prophylaxis Current Visit: Yes Status: Acute Assessment and plan: Pharmacologic prophylaxis secondary to anemia of unknown etiology. IPC's ordered. Coumadin also held. - Subjective Interval history: Patient seen and examined. On examination, patient initially awake and alert and oriented x3. She then requested pain medication, then quickly fell to sleep. Her daughter is at the bedside and states that her mom was awake and acting normally throughout the day and that she had just fallen asleep after taking pain medication upon my arrival into the room. - Constitutional Vitals: Temp Pulse Resp BP Pulse Ox 98.9 F 72 16 115/67 95 11/27/16 14:55 11/27/16 14:55 11/27/16 14:55 11/27/16 14:55 11/27/16 14:40 General appearance: Present: mild distress (Moderate), A&O X 3, pleasant, answers questions appropriately - Head Head exam: Present: atraumatic, normocephalic - Eye Eye exam: Present: PERRL, conjuntiva pink, sclera anicteric Pupils: Present: PERRL - Neck Neck exam general surgery: Present: supple, trachea midline. Absent: lymphadenopathy - Respiratory Respiratory exam: Present: accessory muscle use, respiratory distress, rhonchi. Absent: rales, wheezes - Cardiovascular Cardiovascular exam: Present: RRR, +S1, +S2. Absent: diastolic murmur, gallop, rubs, systolic murmur - GI/Abdominal GI/Abdominal exam: Present: distended, hyperactive bowel sounds, soft, no peritoneal signs. Absent: tenderness - Extremities Exam Extremities exam: Present: warm, radial pulses palpable and symetrical. Absent : calf tenderness, cyanotic, pedal edema (Trace, nonpitting) - Neurological Exam Neurological exam: Present: alert, CN II-XII intact, oriented X3, no focal deficits, strengths equal and symetr throughout. Absent: pronater drift, facial droop, speech deficit - Skin Skin exam: Present: dry, intact, pallor (Improved from yesterday), warm Internal Medicine: Result - Labs CBC & Chem 7: 11/27/16 05:28 11/27/16 05:28 Labs: Short CBC 11/27/16 Range/Units 05:28 WBC 6.5 (4.3-11.1) K/mcL Hgb 6.8 L (11.5-15.4) g/dL Hct 23.8 L (35.3-44.9) % Plt Count 224 (140-400) K/mcL Neutrophils # 4.2 (1.6-8.9) K/mcL BMP 11/27/16 05:28 Sodium 139 Potassium 3.5 Chloride 88 L Carbon Dioxide 45 H* BUN 30 H Creatinine 0.80 Glucose 72 Calcium 8.9 - ABG Interpretation ABG results: ABG ABG pH 7.45 pH Units (7.32-7.45) 11/25/16 17:05 ABG pCO2 77 mmHg (35-45) H* 11/25/16 17:05 ABG pO2 83 mmHg (85-104) L 11/25/16 17:05 ABG O2 Saturation 97 % (95-98) 11/25/16 17:05 PT/INR, D-dimer PT 12.4 Seconds (9.4-12.1) H 11/24/16 19:38 Consult Discharge Plan - Plan Referrals: Andres Gleason MD [Primary Care Provider] - 12/04/16 9:45 am (hospital follow up webrequested )
--- NOTE | 2016-11-27 18:31 | Event Note ---
Date of Encounter: 11/27/16 Time of Encounter: 18:15 Patient seen and reexamined. She is sitting upright in her chair drinking coffee. She denies pain at this time but states her abdomen feels distended and full. She is receiving her second unit of blood at this time. Good aeration throughout. No pedal edema. We will obtain an abdominal CT. We will bring GI on board as the source of her anemia is yet to be determined.
[2016-11-27] MEDS: Temazepam 15 MG CAPSULE PO SCH (20:24)
[2016-11-28 05:36] LABS: Immature Granulocytes % 0.3 % (0-4)
[2016-11-28 05:37] LABS: Hematocrit 30.8 % (35.3-44.9); Lymphocytes % 11.1 %; Mean Corpuscular HGB Conc 29.2 g/dL (31.6-35.5); Mean Corpuscular Hemoglobin 24.1 pg (28.0-33.3); Mean Corpuscular Volume 82.4 fL (83.0-100.0); Mean Platelet Volume 9.8 fL (9.4-12.4); Platelet Count 240 K/mcL (140-400); Red Blood Count 3.74 M/mcL (3.82-4.97); Red Cell Distribution Width 20.4 % (11.5-14.5); Segmented Neutrophils % 71.1 %
[2016-11-28 05:38] LABS: Basophils % 0.3 %; Eosinophils # 0.1 K/mcL (0.0-0.6); Eosinophils % 1.6 %; Lymphocytes # 0.9 K/mcL (0.6-4.6); Monocytes % 15.6 %; Neutrophils # 5.7 K/mcL (1.6-8.9)
[2016-11-28 05:46] LABS: Monocytes # 1.3 K/mcL (0.0-1.3)
[2016-11-28 05:59] LABS: BUN/Creatinine Ratio 40 (6-26); Blood Urea Nitrogen 31 mg/dL (7-20); Calcium 9.3 mg/dL (8.6-10.8); Chloride 92 mEq/L (98-109); Glucose 124 mg/dL (70-99); Magnesium 1.6 mg/dL (1.6-2.6); Osmolality,Calculated 300 (280-300); Potassium 3.6 mEq/L (3.5-4.5); Sodium 141 mEq/L (136-145); eGFR For African Americans > 60 (> 60); eGFR For Non-African Americans > 60 (> 60)
[2016-11-28 06:02] LABS: Carbon Dioxide 41 mEq/L (19-29)
[2016-11-28 06:46] LABS: Anisocytosis 1+ (Not Present); Hypochromasia Present (Not Present); Platelet Estimate Normal (Normal)
[2016-11-28 06:47] LABS: Poikilocytosis 1+ (Not Present); Polychromasia 1+ (Not Present); Target Cells 1+ (Not Present)
[2016-11-28] MEDS: Budesonide/Formoterol 80/4.5 MDI IH SCH ×2 (07:34→22:55)
[2016-11-28] MEDS: Insulin LISPRO 300 UNITS/3 ML VIAL SQ SCH ×4 (08:39→20:50)
[2016-11-28] MEDS: Gabapentin 300 MG CAPSULE PO SCH ×3 (08:39→20:49)
[2016-11-28] MEDS: *HR* HYDROcodone/Acet 7.5/325 mg TABLET PO PRN ×2 (08:41→20:54)
--- NOTE | 2016-11-28 14:10 | Internal Med Progress Note ---
Date of Encounter: 11/28/16 Time of Encounter: 10:30 - Subjective Interval history: Patient was seen and evaluated this morning at about 10:30. She is alert and oriented to month and place. She is alert and oriented to her name as well. She is unsure of the year even after being re-oriented to it twice. Alvarez remains in place has nilda colored urine. Patient states that she lives with her sister who stays at home and cares for her frequently. Patient reports dyspnea on exertion, states that she becomes short of breath even when walking to and from the bathroom. During exam patient is drowsy. - Constitutional Vitals: Temp Pulse Resp BP Pulse Ox 98.4 F 69 16 103/62 100 11/28/16 12:02 11/28/16 12:02 11/28/16 12:02 11/28/16 12:02 11/28/16 12:02 General appearance: Present: mild distress (Moderate), A&O X 3, pleasant, answers questions appropriately Internal Medicine: Result - Labs CBC & Chem 7: 11/28/16 05:20 11/28/16 05:20 Labs: Short CBC 11/28/16 Range/Units 05:20 WBC 8.0 (4.3-11.1) K/mcL Hgb 9.0 L D (11.5-15.4) g/dL Hct 30.8 L (35.3-44.9) % Plt Count 240 (140-400) K/mcL Neutrophils # 5.7 (1.6-8.9) K/mcL BMP 11/28/16 05:20 Sodium 141 Potassium 3.6 Chloride 92 L Carbon Dioxide 41 H* BUN 31 H Creatinine 0.78 Glucose 124 H Calcium 9.3 - ABG Interpretation ABG results: ABG ABG pH 7.45 pH Units (7.32-7.45) 11/25/16 17:05 ABG pCO2 77 mmHg (35-45) H* 11/25/16 17:05 ABG pO2 83 mmHg (85-104) L 11/25/16 17:05 ABG O2 Saturation 97 % (95-98) 11/25/16 17:05 PT/INR, D-dimer PT 12.4 Seconds (9.4-12.1) H 11/24/16 19:38 - Impressions Impressions Abdomen/Pelvis CT 11/27/16 18:21 IMPRESSION: Markedly heterogeneous liver suggesting hepatitis. Trace effusions and bibasilar atelectasis Heterogeneous hypodense area in the mid right kidney is indeterminate, not seen on the prior study. D/ / Iggy Cash MD / Iggy Cash MD Interpreting Provider: Iggy Cash MD Consult Discharge Plan - Plan Referrals: Andres Gleason MD [Primary Care Provider] - 12/04/16 9:45 am (hospital follow up webrequested )
--- NOTE | 2016-11-28 14:21 | Internal Med Progress Note ---
Date of Encounter: 11/28/16 Time of Encounter: 10:30 - Assessment and plan (1) Altered mental status Current Visit: Yes Status: Resolved Assessment and plan: Per yesterday's assessment, patient was alert and oriented 3 and back to her baseline. Today she is alert, oriented to place and month only. Despite being reoriented twice, she remains unsure of the year. She was drowsy during assessment, although this could be do to her scheduled [place], which is a home medication, and her gabapentin which is also home medication.. She did arouse to questioning and appeared to answer appropriately. I have repeated the urine since she has an indwelling Alvarez catheter.. Her head CT showed a significantly resolving subdural hematoma. Chest x-ray findings were most consistent with mild CHF. She had a blood transfusion yesterday hemoglobin is at 9.0 today. Continue home medications Repeat urine Monitor patient Qualifiers: Altered mental status type: disorientation Qualified Code(s): R41.0 - Disorientation, unspecified (2) Hematuria Current Visit: No Status: Resolved Assessment and plan: Patient has been cleared by urology for outpatient follow-up. Her urine is nilda colored in the Alvarez drainage bag. We are repeating urine will reassess for hematuria. (3) Atrial fibrillation Current Visit: No Status: Chronic Assessment and plan: Rate controlled. Takes sotalol at home. Continue medications. Coumadin has been held due to anemia. IPCs ordered Qualifiers: Atrial fibrillation type: persistent Qualified Code(s): I48.1 - Persistent atrial fibrillation (4) Acute on chronic respiratory failure Current Visit: No Status: Chronic Assessment and plan: Pt uses 02 at home. Pt is on 2L here to maintain sats >92%. Pt reports DEE today with amb to and from bathroom. Pt reports cough that is better than yesterday with clear sputum. Lungs are clear and diminished throughout. 02 2L nc, titrate as needed. Pulse ox with vital signs Monitor pt condition. Qualifiers: Respiratory failure complication: hypoxia and hypercapnia Qualified Code(s) : J96.21 - Acute and chronic respiratory failure with hypoxia; J96.22 - Acute and chronic respiratory failure with hypercapnia (5) Diabetes mellitus Current Visit: Yes Status: Chronic Assessment and plan: A1c ordered for morning, last drawn in April 2016. Patient has been hyperglycemic since arrival, primarily in mid 100s. Diabetic diet A1c in a.m. Sliding scale insulin Accu-Cheks before meals at bedtime Qualifiers: Diabetes mellitus type: type 2 Diabetes mellitus complication status: without complication Diabetes mellitus pharmacy innovation assistant insulin use: without pharmacy innovation assistant use Qualified Code(s): E11.9 - Type 2 diabetes mellitus without complications (6) Anemia Current Visit: Yes Status: Chronic Assessment and plan: Chronic anemia since 2014. B12, folate, TSH all normal. Iron deficiency noted. We are still waiting on a stool specimen for guaiac. Primary nurse is aware of necessity. Patient reports dyspnea on exertion when walking to and from the bathroom. She is requiring no oxygen to maintain her sats greater than 92%. She received 2 units of packed red blood cells last night and her fluids up and discontinued. Hemoglobin 9 today. Will check again in the morning to see if it has gone up or decreased. Qualifiers: Anemia type: unspecified type Qualified Code(s): D64.9 - Anemia, unspecified (7) DVT prophylaxis Current Visit: Yes Status: Acute Assessment and plan: PCD's ordered. Coumadin stopped due to anemia of uncertain origin. (8) HTN (hypertension) Current Visit: Yes Status: Acute Assessment and plan: Well controlled. Continue home medications. Monitor vs Qualifiers: Hypertension type: essential hypertension Qualified Code(s): I10 - Essential (primary) hypertension - Time Spent With Patient less than 15 minutes - Subjective Interval history: Patient was seen and evaluated this morning at about 10:30. She is alert and oriented to month and place. She is alert and oriented to her name as well. She is unsure of the year even after being re-oriented to it twice. Alvarez remains in place has nilda colored urine. Patient states that she lives with her sister who stays at home and cares for her frequently. Patient reports dyspnea on exertion, states that she becomes short of breath even when walking to and from the bathroom. During exam patient is drowsy, states that she did not sleep well last night. She reports that she has not had a bowel movement 3 days. I started MiraLAX daily today. She states that her cough is better and she is producing clear sputum. She is no peripheral edema. Since the drowsiness and being alert and oriented 2 appears to be a change again today, I have ordered a urine with micro-and reflex culture. We will continue to monitor patient. - Constitutional Vitals: Temp Pulse Resp BP Pulse Ox 98.4 F 69 16 103/62 100 11/28/16 12:02 11/28/16 12:02 11/28/16 12:02 11/28/16 12:02 11/28/16 12:02 General appearance: Present: cooperative, A&O X 2, pleasant, no acute distress, answers questions appropriately - Head Head exam: Present: normal inspection - Eye Eye exam: Present: normal appearance - Neck Neck exam general surgery: Present: normal inspection. Absent: lymphadenopathy , tenderness - Respiratory Respiratory exam: Present: CTAB. Absent: rales, respiratory distress, rhonchi, wheezes - Cardiovascular Cardiovascular exam: Present: RRR, +S1, +S2. Absent: diastolic murmur, systolic murmur - GI/Abdominal GI/Abdominal exam: Present: normal bowel sounds, soft. Absent: hepatomegaly, tenderness - Extremities Exam Extremities exam: Present: normal inspection, warm. Absent: pedal edema, tenderness - Neurological Exam Neurological exam: Present: alert, no focal deficits, strengths equal and symetr throughout. Absent: oriented X3, facial droop, speech deficit Internal Medicine: Result - Labs CBC & Chem 7: 11/28/16 05:20 11/28/16 05:20 Labs: Short CBC 11/28/16 Range/Units 05:20 WBC 8.0 (4.3-11.1) K/mcL Hgb 9.0 L D (11.5-15.4) g/dL Hct 30.8 L (35.3-44.9) % Plt Count 240 (140-400) K/mcL Neutrophils # 5.7 (1.6-8.9) K/mcL BMP 11/28/16 05:20 Sodium 141 Potassium 3.6 Chloride 92 L Carbon Dioxide 41 H* BUN 31 H Creatinine 0.78 Glucose 124 H Calcium 9.3 - ABG Interpretation ABG results: ABG ABG pH 7.45 pH Units (7.32-7.45) 11/25/16 17:05 ABG pCO2 77 mmHg (35-45) H* 11/25/16 17:05 ABG pO2 83 mmHg (85-104) L 11/25/16 17:05 ABG O2 Saturation 97 % (95-98) 11/25/16 17:05 PT/INR, D-dimer PT 12.4 Seconds (9.4-12.1) H 11/24/16 19:38 - Impressions Impressions Abdomen/Pelvis CT 11/27/16 18:21 IMPRESSION: Markedly heterogeneous liver suggesting hepatitis. Trace effusions and bibasilar atelectasis Heterogeneous hypodense area in the mid right kidney is indeterminate, not seen on the prior study. D/ / Iggy Cash MD / Iggy Cash MD Interpreting Provider: Iggy Cash MD Consult Discharge Plan - Plan Referrals: Andres Gleason MD [Primary Care Provider] - 12/04/16 9:45 am (hospital follow up webrequested )
[2016-11-28 17:13] LABS: Bilirubin,Urine Small (Negative); Blood,Urine Large (Negative); Clarity,Urine Clear (Clear); Color,Urine Dark Yellow (Yellow); Glucose,Urine (UA) Normal (Normal); Ketones,Urine Negative (Negative); Leukocyte Esterase,Urine Trace (Negative); Nitrite,Urine Negative (Negative); Protein,Urine 30 mg/dL (Neg-Trace); Specific Gravity,Urine 1.029 (1.010-1.025); Urobilinogen,Urine Normal (Normal)
[2016-11-28 17:15] LABS: Bacteria,Urine None Seen per hpf (None-Few); Hyaline Casts,Urine None Seen per lpf (None-Few); RBC,Urine TNTC per hpf (0-3); Squamous Epithelial Cell,Urine Many per lpf (None-Few)
[2016-11-28] MEDS ORDERED: SODIUM CHLORIDE/NAHCO3/KCL/PEG 4,000 ML SOLN.RECON PO ONE (19:00)
[2016-11-28] MEDS: Temazepam 15 MG CAPSULE PO SCH (20:49)
[2016-11-29 04:41] LABS: Basophils % 0.4 %; Eosinophils # 0.2 K/mcL (0.0-0.6); Eosinophils % 2.4 %; Hematocrit 30.4 % (35.3-44.9); Hemoglobin 8.9 g/dL (11.5-15.4); Immature Granulocytes % 0.1 % (0-4); Lymphocytes # 1.1 K/mcL (0.6-4.6); Lymphocytes % 14.9 %; Mean Corpuscular HGB Conc 29.3 g/dL (31.6-35.5); Mean Corpuscular Hemoglobin 24.1 pg (28.0-33.3); Mean Corpuscular Volume 82.4 fL (83.0-100.0); Mean Platelet Volume 10.4 fL (9.4-12.4); Monocytes # 1.2 K/mcL (0.0-1.3); Monocytes % 17.5 %; Neutrophils # 4.6 K/mcL (1.6-8.9); Platelet Count 237 K/mcL (140-400); Red Blood Count 3.69 M/mcL (3.82-4.97); Red Cell Distribution Width 20.9 % (11.5-14.5); Segmented Neutrophils % 64.7 %
[2016-11-29 04:59] LABS: BUN/Creatinine Ratio 34 (6-26); Blood Urea Nitrogen 24 mg/dL (7-20); Carbon Dioxide 37 mEq/L (19-29); Chloride 90 mEq/L (98-109); Glucose 78 mg/dL (70-99); Osmolality,Calculated 287 (280-300); Potassium 3.7 mEq/L (3.5-4.5); Sodium 137 mEq/L (136-145); eGFR For African Americans > 60 (> 60); eGFR For Non-African Americans > 60 (> 60)
[2016-11-29 05:24] LABS: Hemoglobin A1C 5.3 %
[2016-11-29] MEDS: Budesonide/Formoterol 80/4.5 MDI IH SCH ×2 (07:57→21:42)
[2016-11-29] MEDS: Insulin LISPRO 300 UNITS/3 ML VIAL SQ SCH ×4 (08:23→20:45)
--- NOTE | 2016-11-29 09:17 | Gastroenterology Consult Note ---
<Amelia Caban - Last Filed: 11/29/16 11:55> Date of Encounter: 11/29/16 Time of Encounter: 11:00 - Assessment and plan (1) Anemia Current Visit: Yes Status: Chronic Assessment and plan: Acute on chronic Fe def anemia. Baseline in 11s, presented with hgb of 6.8. Some indication of hematuria in medical records. Hemoccult was negative, however , her last scope was in 2009. Recommendation: EGD/Colon today - iron supplementation. R/O esophagitis, gastritis, duodenitis, PUD, MW tear, tumor, polyp, AVMs, anorectal pathology, colitis. Qualifiers: Anemia type: iron deficiency Iron deficiency anemia type: unspecified iron deficiency Qualified Code(s): D50.9 - Iron deficiency anemia, unspecified - Time Spent With Patient Total time spent is greater than 50% in coordination of care (as documented) at patient's floor/unit and/or counseling patient: less than 15 minutes GI History of Present Illness - Data of Consult Patient: new to practice Consult date: 11/29/16 Requesting Physician: Anaya Castaneda - Consult Narrative Reason for consult: Anemia History of present illness: Ms. Fleming is a 76 year old female with a PMH of afib, PM/AICD, COPD, CVA, DM , bladder ca with indwelling matthews, fatty liver, hyperlipidemia, HTN and a recent subdural hematoma that is significantly resolving. Family brings patient to ER 11/24/16 with complaint of AMS, patient indicated she was SOB. She was found to have worsening of her microcytic anemia with a hgb of 6.8, currently 8.9 after receiving 2 units of PRBC. Her baseline is in the 11s. She is on Coumadin therapy, her INR was subtherapeutic at 1.1. Her last Cscope was 2009 with colon polyps noted. Patient was alert and oriented x 3 during my exam, some complaint of lower/mid abdominal pain, L side. Colonoscopy: 2009 - colon polyp EGD: None noted Past Med Surg Social Fam HX - Past Medical History Medical history: atrial fibrillation, cancer, COPD, CVA, diabetes, hyperlipidemia, hypertension, other Psychiatric history: anxiety, panic disorder - Past Surgical History Surgical History: cataract, cholecystectomy, hysterectomy, pacemaker/AICD, other - Social History Smoking Status: Current every day smoker Packs per day: 1 Smokeless Tobacco Status: No Alcohol use: none Drug use: none - Family History Mother Living Status: Hx Family Cardiac Disorders: Yes Hx Family Respiratory Disorders: No Hx Family Cancer: No Hx Family GI Disorders: No Hx Family Endocrine Disorder: Yes Hx Family Neuromuscular Disorders: No Hx Family Neurologic Disorders: No Hx Family HEENT Disorders: No Hx Family Autoimmune Disorders: No Father Living Status: Hx Family Cardiac Disorders: No Hx Family Respiratory Disorders: Yes (EMPHYSEMA.) Hx Family Cancer: Yes Hx Family GI Disorders: No Hx Family Endocrine Disorder: No Hx Family Neuromuscular Disorders: No Hx Family Neurologic Disorders: No Hx Family HEENT Disorders: No Hx Family Autoimmune Disorders: No - Gastrointestinal NSAID use: None noted Anticoagulation Use: Coumadin Number of BM Per Day: daily Gastrointestinal: Present: abdominal pain - Constitutional Constitutional: as per HPI - EENT Eyes: as per HPI Ears: Present: as per HPI Nose, mouth and throat: Present: as per HPI - Cardiovascular Cardiovascular ROS: Present: irregular heart rhythm Additional Comment: PM/AICD - Respiratory Respiratory IM: Present: dyspnea - Neurological ROS Neurological GI: Present: as per HPI - Hematologic/Lymphatic Hematologic/Lymphatic pediatric: Present: as per HPI - Integumentary Integumentary GI: Present: as per HPI - Psychiatric ROS Psychiatric GI: Present: as per HPI - Endocrine Endocrine IM: Present: as per HPI - Constitutional Vitals: Temp Pulse Resp BP Pulse Ox 97.5 F L 67 16 119/71 94 11/29/16 07:44 11/29/16 07:44 11/29/16 07:58 11/29/16 07:44 11/29/16 07:58 General appearance: Present: cooperative, A&O X 3, no acute distress, answers questions appropriately - Head Head exam: Present: atraumatic, normocephalic - Eye Eye exam: Present: normal appearance, sclera anicteric - ENT ENT exam: Present: mucous membranes moist - Neck Neck exam general surgery: Present: normal inspection, trachea midline - Respiratory Respiratory exam: Present: CTAB - Cardiovascular Cardiovascular exam: Present: RRR, +S1, +S2, systolic murmur - GI/Abdominal GI/Abdominal exam: Present: normal bowel sounds, soft, no peritoneal signs - Rectal Rectal exam: Present: deferred - Extremities Exam Extremities exam: Present: warm - Neurological Exam Neurological exam: Present: no focal deficits - Psychiatric Psychiatric exam: Present: normal affect, normal mood - Skin Skin exam: Present: dry, intact, normal color, warm Results - Labs CBC & Chem 7: 11/29/16 03:43 11/29/16 03:43 Labs: Last Result Calcium 9.0 mg/dL (8.6-10.8) 11/29/16 03:43 Iron 18 mcg/dL (50-170) L 11/25/16 08:55 % Saturation 3 % (15-50) L 11/25/16 08:55 Transferrin 385 mg/dL (180-382) H 11/25/16 08:55 Ferritin 24 ng/ml (5-204) 11/25/16 08:55 Troponin I 0.02 ng/mL (0-0.03) 11/24/16 19:38 Vitamin B12 374 pg/mL (213-816) 11/25/16 08:55 Folate 12.3 ng/mL (7.0-31.4) 11/25/16 08:55 Stool Occult Blood Negative (Negative) 11/28/16 14:55 Entire Visit Hgb 8.9 g/dL (11.5-15.4) L 11/29/16 03:43 Hct 30.4 % (35.3-44.9) L 11/29/16 03:43 PT 12.4 Seconds (9.4-12.1) H 11/24/16 19:38 Ferritin 24 ng/ml (5-204) 11/25/16 08:55 Total Bilirubin 0.4 mg/dL (0.2-1.2) 11/24/16 19:38 AST 24 Units/L (5-34) 11/24/16 19:38 ALT 14 Units/L (0-55) 11/24/16 19:38 Folate 12.3 ng/mL (7.0-31.4) 11/25/16 08:55 - ABG ABG results: ABG ABG pH 7.45 pH Units (7.32-7.45) 11/25/16 17:05 ABG pCO2 77 mmHg (35-45) H* 11/25/16 17:05 ABG pO2 83 mmHg (85-104) L 11/25/16 17:05 ABG O2 Saturation 97 % (95-98) 11/25/16 17:05 PT/INR, D-dimer PT 12.4 Seconds (9.4-12.1) H 11/24/16 19:38 Consult Discharge Plan - Plan Referrals: Andres Gleason MD [Primary Care Provider] - 12/04/16 9:45 am (hospital follow up webrequested ) <Chris Shaver - Last Filed: 11/29/16 21:06> Date of Encounter: 11/29/16 Time of Encounter: 17:00 - Time Spent With Patient Total time spent is greater than 50% in coordination of care (as documented) at patient's floor/unit and/or counseling patient: GI History of Present Illness - Data of Consult Requesting Physician: Anaya Castaneda - Consult Narrative History of present illness: Ms. Fleming is a 76 year old female - Constitutional Vitals: Temp Pulse Resp BP Pulse Ox 97.6 F 83 14 171/79 97 11/29/16 19:46 11/29/16 19:46 11/29/16 19:46 11/29/16 19:46 11/29/16 19:46 Results - Labs CBC & Chem 7: 11/29/16 03:43 11/29/16 03:43 Labs: Last Result Calcium 9.0 mg/dL (8.6-10.8) 11/29/16 03:43 Iron 18 mcg/dL (50-170) L 11/25/16 08:55 % Saturation 3 % (15-50) L 11/25/16 08:55 Transferrin 385 mg/dL (180-382) H 11/25/16 08:55 Ferritin 24 ng/ml (5-204) 11/25/16 08:55 Troponin I 0.02 ng/mL (0-0.03) 11/24/16 19:38 Vitamin B12 374 pg/mL (213-816) 11/25/16 08:55 Folate 12.3 ng/mL (7.0-31.4) 11/25/16 08:55 Stool Occult Blood Negative (Negative) 11/28/16 14:55 Entire Visit Hgb 8.9 g/dL (11.5-15.4) L 11/29/16 03:43 Hct 30.4 % (35.3-44.9) L 11/29/16 03:43 PT 12.4 Seconds (9.4-12.1) H 11/24/16 19:38 Ferritin 24 ng/ml (5-204) 11/25/16 08:55 Total Bilirubin 0.4 mg/dL (0.2-1.2) 11/24/16 19:38 AST 24 Units/L (5-34) 11/24/16 19:38 ALT 14 Units/L (0-55) 11/24/16 19:38 Folate 12.3 ng/mL (7.0-31.4) 11/25/16 08:55 - ABG ABG results: ABG ABG pH 7.45 pH Units (7.32-7.45) 11/25/16 17:05 ABG pCO2 77 mmHg (35-45) H* 11/25/16 17:05 ABG pO2 83 mmHg (85-104) L 11/25/16 17:05 ABG O2 Saturation 97 % (95-98) 11/25/16 17:05 PT/INR, D-dimer PT 12.4 Seconds (9.4-12.1) H 11/24/16 19:38 - Impressions Impressions Chest X-Ray 11/29/16 13:56 IMPRESSION: Enlarging bilateral pleural effusions with overlying atelectatic changes. Stable cardiomegaly up. D/ / Valente Mata MD / Valente Mata MD Interpreting Provider: Valente Mata MD - Attending Attestation I examined this patient and my medical decision-making was reviewed with the [employer]/PA/Advanced Practice Nurse/Resident Physician. I agree with the documented findings, disposition and treatment plan as described except to the extent set forth below.
[2016-11-29] MEDS: Gabapentin 300 MG CAPSULE PO SCH ×3 (09:38→20:38)
[2016-11-29] MEDS: Albuterol 2.5 MG/3 ML NEBULIZER IH PRN ×2 (16:02→21:42)
[2016-11-29] MEDS ORDERED: *HR* FentaNYL (PF) 100 MCG/2 ML VIAL ONE (16:26)
[2016-11-29] MEDS ORDERED: *HR* Midazolam HCl 5 MG/5 ML VIAL IVP ONE (16:27)
[2016-11-29] MEDS: *HR* FentaNYL (PF) 100 MCG/2 ML VIAL IVP PRN ×2 (17:11→17:14)
[2016-11-29] MEDS: *HR* Midazolam HCl 5 MG/5 ML VIAL IVP PRN ×2 (17:11→17:14)
[2016-11-29 19:24] LABS: VBG HCO3 45.4 mEq/L (21-27); VBG PH 7.39 pH Units (7.32-7.42)
[2016-11-29] MEDS ORDERED: Furosemide 20 MG/2 ML VIAL IVP ONE (20:35)
[2016-11-29] MEDS: Temazepam 15 MG CAPSULE PO SCH (20:38)
[2016-11-29] MEDS: Furosemide 20 MG/2 ML VIAL IVP SCH (20:43)
--- NOTE | 2016-11-29 20:44 | Internal Med Progress Note ---
Date of Encounter: 11/29/16 Time of Encounter: 09:50 - Assessment and plan (1) Hematuria Current Visit: No Status: Resolved Assessment and plan: Patient's urine was collected yesterday shows a large amount of blood and red blood cells too numerous to count. I spoke with Dr. Chambers by phone for recommendations. Patient did tell me today that she has prior bladder cancer. His recommendation is for the patient to follow-up outpatient in the office. Patient is aware of this recommendation. (2) Atrial fibrillation Current Visit: Yes Status: Chronic Assessment and plan: Patient is rate controlled with sotalol. Continue medications here Patient has APCs ordered. Patient has pacemaker. Qualifiers: Atrial fibrillation type: persistent Qualified Code(s): I48.1 - Persistent atrial fibrillation (3) Acute on chronic respiratory failure Current Visit: No Status: Chronic Assessment and plan: Patient is maintaining room air sat 98% on 2 L. She does wear oxygen at home. She reported dyspnea on exertion today which is going to add from the bathroom. She says her cough is nonproductive and different than her normal cough. Supplemental oxygen 2 L titrate as needed Pulse ox with vital signs Monitor patient condition Qualifiers: Respiratory failure complication: hypoxia and hypercapnia Qualified Code(s) : J96.21 - Acute and chronic respiratory failure with hypoxia; J96.22 - Acute and chronic respiratory failure with hypercapnia (4) Congestive heart failure Current Visit: No Status: Suspected Assessment and plan: Patient reports new cough today that is different than her normal. She reports it is nonproductive. Patient is requiring 2 L of oxygen to maintain her sats. They are currently in the 90s. She does wear home oxygen at 2 L. Patient has 2+ pitting pretibial edema. No pedal edema. Dyspnea on exertion while walking to and from bathroom. Decreased lung sounds on right side today during examination. Chest x-ray shows bilateral pleural effusions more prominent than on the prior exam with overlying atelectatic changes. No evidence of pneumothorax. Enlarging bilateral pleural effusions since prior exam, stable cardiomegaly. Prior history of CHF. Echocardiogram in October, shows normal systolic function of EF 65%. Mild concentric left ventricular hypertrophy. Indeterminate diastolic function due to be paced rhythm. A normal right ventricular structure and function. New pacemaker inserted in June 2016. I started the patient on Lasix 20 mg IV twice a day Reassess labs in the morning. BNP ordered Qualifiers: Congestive heart failure type: unspecified congestive heart failure type Congestive heart failure chronicity: acute Qualified Code(s): I50.9 - Heart failure, unspecified (5) Diabetes mellitus Current Visit: Yes Status: Chronic Assessment and plan: Chronic. A1c is 5.3. Sliding scale insulin Diabetic diet Accu-Cheks before meals and at bedtime Qualifiers: Diabetes mellitus type: type 2 Diabetes mellitus complication status: without complication Diabetes mellitus [facility] insulin use: without [facility] use Qualified Code(s): E11.9 - Type 2 diabetes mellitus without complications (6) Anemia Current Visit: Yes Status: Chronic Assessment and plan: Chronic anemia since 2014. B12, folate, TSH all normal. Patient reports dyspnea on exertion when walking to and from the bathroom. She is requiring oxygen to maintain her sats greater than 92%.Hemoglobin 8.9 today. Patient has hematuria and will follow up outpatient with urology. Labs in the morning. Hemoglobin is currently stable. Qualifiers: Anemia type: iron deficiency Iron deficiency anemia type: unspecified iron deficiency Qualified Code(s): D50.9 - Iron deficiency anemia, unspecified (7) HTN (hypertension) Current Visit: Yes Status: Acute Assessment and plan: Patient been slightly hypertensive. Continue to monitor vital signs. Continue home medications. Qualifiers: Hypertension type: secondary to endocrine disorders Qualified Code(s): I15.2 - Hypertension secondary to endocrine disorders (8) DVT prophylaxis Current Visit: Yes Status: Acute Assessment and plan: PCD's ordered. Coumadin stopped due to anemia of uncertain origin. - Time Spent With Patient 25 - 35 minutes - Subjective Interval history: Pt was seen at about 950 this morning. Today she was alert and oriented 3 and engaging. Her speech was clear. Patient states that she lives alone but will live with her sister. Her sister visited today and states that patient is on the waiting list for assisted living and was wondering if they could put her in rehabilitation for physical therapy prior to going to assisted living. Patient states she did not sleep well all night because she was having bowel movements from the bowel prep. She was to have a scope today at 1630. Patient appears to be short of breath sitting up during initial examination, she is wearing 2 L of oxygen. She has +2 pitting pretibial edema without pedal edema. She also has a moist nonproductive cough that she states is different than her normal cough. When I auscultated her lungs sounds there is virtually no aeration found on right side. I got a chest x-ray that showed enlarging bilateral pleural effusions with overlying atelectatic changes and stable cardiomegaly. I started the patient on 20 mg of Lasix IV. I reviewed physical therapy notes and they do suggest physical therapy at an ECF or SNF. I received a call from Dr. Shaver after her scope today. He reports that the patient desaturated during the procedure and he was concerned for her respiratory status. I discussed the chest x-ray with him at that time. Since that time if seen the patient in her room approximately 1 hour ago. She is sitting up at the site of the bed on 2 L of oxygen with a sat 99%. Her pulses in the 70s. And she does seem to be more comfortable than she had been previously when I evaluated her this morning. I will reevaluate her again in the morning. - Constitutional Vitals: Temp Pulse Resp BP Pulse Ox 98.7 F 70 17 169/77 98 11/29/16 19:34 11/29/16 19:34 11/29/16 19:34 11/29/16 19:34 11/29/16 19:34 General appearance: Present: cooperative, A&O X 2, pleasant, no acute distress, answers questions appropriately - ENT ENT exam: Present: mucous membranes moist, normal exam - Neck Neck exam general surgery: Present: normal inspection. Absent: lymphadenopathy , tenderness - Respiratory Respiratory exam: Present: decreased breath sounds. Absent: chest wall tenderness, respiratory distress - Cardiovascular Cardiovascular exam: Present: RRR, +S1, +S2. Absent: diastolic murmur, systolic murmur - GI/Abdominal GI/Abdominal exam: Present: normal bowel sounds, soft. Absent: hepatomegaly, tenderness - Extremities Exam Extremities exam: Present: warm, radial pulses palpable and symetrical. Absent : pedal edema, tenderness Additional comments: Patient has 2+ pitting pretibial edema. No pedal edema. +2 bilateral pedal pulses - Neurological Exam Neurological exam: Present: alert, oriented X3. Absent: facial droop, speech deficit Internal Medicine: Result - Labs CBC & Chem 7: 11/29/16 03:43 11/29/16 03:43 Labs: Short CBC 11/29/16 Range/Units 03:43 WBC 7.0 (4.3-11.1) K/mcL Hgb 8.9 L (11.5-15.4) g/dL Hct 30.4 L (35.3-44.9) % Plt Count 237 (140-400) K/mcL Neutrophils # 4.6 (1.6-8.9) K/mcL BMP 11/29/16 03:43 Sodium 137 Potassium 3.7 Chloride 90 L Carbon Dioxide 37 H BUN 24 H Creatinine 0.70 Glucose 78 Calcium 9.0 - ABG Interpretation ABG results: ABG ABG pH 7.45 pH Units (7.32-7.45) 11/25/16 17:05 ABG pCO2 77 mmHg (35-45) H* 11/25/16 17:05 ABG pO2 83 mmHg (85-104) L 11/25/16 17:05 ABG O2 Saturation 97 % (95-98) 11/25/16 17:05 PT/INR, D-dimer PT 12.4 Seconds (9.4-12.1) H 11/24/16 19:38 - Impressions Impressions Chest X-Ray 11/29/16 13:56 IMPRESSION: Enlarging bilateral pleural effusions with overlying atelectatic changes. Stable cardiomegaly up. D/ / Valente Mata MD / Valente Mata MD Interpreting Provider: Valente Mata MD Consult Discharge Plan - Plan Referrals: Andres Gleason MD [Primary Care Provider] - 12/04/16 9:45 am (hospital follow up webrequested )
[2016-11-30 06:18] LABS: Red Cell Distribution Width 21.2 % (11.5-14.5)
[2016-11-30 06:20] LABS: Basophils % 0.3 %; Eosinophils # 0.1 K/mcL (0.0-0.6); Eosinophils % 1.3 %; Hemoglobin 8.9 g/dL (11.5-15.4); Immature Granulocytes % 0.3 % (0-4); Lymphocytes % 12.8 %; Mean Corpuscular HGB Conc 29.7 g/dL (31.6-35.5); Mean Corpuscular Hemoglobin 24.5 pg (28.0-33.3); Mean Corpuscular Volume 82.4 fL (83.0-100.0); Mean Platelet Volume 10.6 fL (9.4-12.4); Monocytes # 1.1 K/mcL (0.0-1.3); Neutrophils # 5.6 K/mcL (1.6-8.9); Platelet Count 243 K/mcL (140-400); Red Blood Count 3.64 M/mcL (3.82-4.97); Segmented Neutrophils % 71.3 %
[2016-11-30 06:39] LABS: BUN/Creatinine Ratio 22 (6-26); Blood Urea Nitrogen 14 mg/dL (7-20); Calcium 9.3 mg/dL (8.6-10.8); Carbon Dioxide 35 mEq/L (19-29); Chloride 92 mEq/L (98-109); Glucose 75 mg/dL (70-99); Osmolality,Calculated 281 (280-300); Potassium 4.2 mEq/L (3.5-4.5); Sodium 136 mEq/L (136-145); eGFR For African Americans > 60 (> 60); eGFR For Non-African Americans > 60 (> 60)
[2016-11-30 07:13] LABS: Anisocytosis 2+ (Not Present); Hypochromasia Present (Not Present); Platelet Estimate Normal (Normal)
[2016-11-30] MEDS: Insulin LISPRO 300 UNITS/3 ML VIAL SQ SCH ×2 (07:39→12:17)
[2016-11-30] MEDS: Budesonide/Formoterol 80/4.5 MDI IH SCH (08:34)
[2016-11-30] MEDS: Furosemide 20 MG/2 ML VIAL IVP SCH (10:04)
[2016-11-30] MEDS: Gabapentin 300 MG CAPSULE PO SCH (10:05)
[2016-11-30] MEDS: *HR* HYDROcodone/Acet 7.5/325 mg TABLET PO PRN (10:12)
[2016-11-30 11:17] VITALS: BP 116/75
--- NOTE | 2016-11-30 12:34 | Discharge Summary ---
Date of Encounter: 11/30/16 Time of Encounter: 09:15 - Discharge Diagnosis (1) Hematuria Priority: Primary Status: Acute Comments: Urine collected yesterday shows slight amount of blood and red blood cells, TNTC. Dr. Chambers has been consulted for recommendations. Patient has a prior history of bladder cancer and was seen by Dr. Calixto. Patient has a Dumas catheter that will be DC'd prior to discharge. Unless there is a significant change in amount of hematuria or copious amounts of hematuria, is recommended that Mrs. Fleming follow-up outpatient in the office after discharge. Urine was also positive for trace of leukocyte esterase, negative for bacteria. Final culture was negative for any growth. Follow-up outpatient urology (2) Atrial fibrillation Priority: Secondary Status: Chronic Comments: Patient is rate controlled with sotalol. Continue at ECF. Anticoagulation has been stopped due to hematuria. Patient had a biventricular pacemaker placed in June 2016. Patient will need to be reassessed for anticoagulation after follow-up appointment with urology. Qualifiers: Atrial fibrillation type: persistent Qualified Code(s): I48.1 - Persistent atrial fibrillation (3) Acute on chronic respiratory failure Priority: Secondary Status: Chronic Comments: Patient is back to baseline with her normal 2 L of oxygen that she wears at home. She has maintained her sats anywhere from 94-100% today on 2 L. Continue supplemental oxygen therapy at [facility]. Qualifiers: Respiratory failure complication: hypoxia and hypercapnia Qualified Code(s) : J96.21 - Acute and chronic respiratory failure with hypoxia; J96.22 - Acute and chronic respiratory failure with hypercapnia (4) Congestive heart failure Priority: Secondary Status: Suspected Comments: Patient states that she is back to baseline her normal breathing. She says that she feels that her edema in her lower extremities is better and that she is not as short of breath and she has been previously. She still reports nonproductive cough. She wears supplemental oxygen at 2 L by nasal cannula all the time. Sats are stable in the high 90s to 100% on 2 L. Patient has better aeration in posterior lung linares, lung sounds are diminished with some faint expiratory wheezing in bilateral bases. Chest x-ray yesterday showed worsening bilateral pleural effusions that were more prominent than on the prior exam with overlying atelectatic changes, and cardiomegaly. Patient has a prior history of CHF. Echocardiogram in October 2015 shows normal systolic function and an EF of 65%. Mild concentric left ventricular hypertrophy, and indeterminate diastolic function due to paced rhythm. Patient had not been getting her home dose of Lasix while she was here. I restarted Lasix yesterday at 20 mg IV twice a day. Her initial BNP was 438 on November 24, yesterday 305. Patient had +2 pitting pretibial edema yesterday, none in her feet. Today pretibial edema has greatly decreased and tibia is easily palpable. Patient states her calves are still a little tight, but generally agrees that it is an improvement from yesterday. Patient will restart her normal home dose of Lasix, and she will need to be monitored for increasing edema or increasing shortness of breath. She will need to have a follow-up chest x-ray in the next 3-5 days to reevaluate. Qualifiers: Congestive heart failure type: unspecified congestive heart failure type Congestive heart failure chronicity: acute Qualified Code(s): I50.9 - Heart failure, unspecified (5) Diabetes mellitus Priority: Secondary Status: Chronic Comments: Chronic. A1c is 5.3 this visit. We will continue home medications. Qualifiers: Diabetes mellitus type: type 2 Diabetes mellitus complication status: without complication Diabetes mellitus group home insulin use: without applications project manager use Qualified Code(s): E11.9 - Type 2 diabetes mellitus without complications (6) Anemia Priority: Secondary Status: Chronic Comments: Chronic. Chronic since 2014. B12, folate, and TSH are all normal. Patient did not initially report dyspnea on exertion when walking to and from the bathroom, however, this could have been from the CHF as well. Patient was transfused after hemoglobin of 6.8. She has remained steady at 8.9, last 2 days. Patient had a scope yesterday by Dr. Shaver that was negative for any bleeding. Currently her only source of obvious bleeding is the hematuria as mentioned above. Monitor patient's labs. Qualifiers: Anemia type: iron deficiency Iron deficiency anemia type: unspecified iron deficiency Qualified Code(s): D50.9 - Iron deficiency anemia, unspecified (7) HTN (hypertension) Priority: Secondary Status: Chronic Comments: Chronic. Continue home medications. Qualifiers: Hypertension type: secondary to endocrine disorders Qualified Code(s): I15.2 - Hypertension secondary to endocrine disorders (8) DVT prophylaxis Priority: Secondary Status: Acute Comments: PCD's were ordered. Coumadin was stopped due to anemia of uncertain origin. - Discharge Medications Prescriptions: Alprazolam [Xanax 0.5 MG Tablet] 0.5 mg PO BID PRN #6 tablet PRN Reason: Anxiety HYDROcodone/Acet 7.5/325 mg [[place] 7.5-325 mg] 1 tab PO TID PRN #6 tablet PRN Reason: Pain Home Medications: Atorvastatin Calcium [Lipitor] 20 mg PO QPM 08/17/15 [History] Citalopram [CeleXA] 40 mg PO DAILY 08/17/15 [History] Cyclobenzaprine HCl 5 mg PO BID 08/17/15 [History] Furosemide [Lasix] 40 mg PO QAM 08/17/15 [History] Gabapentin [Neurontin] 300 mg PO TID 08/17/15 [History] Hydrochlorothiazide 25 mg PO DAILY 08/17/15 [History] Lisinopril [Zestril] 20 mg PO QAM 08/17/15 [History] Metformin HCl [Glucophage] 1,000 mg PO BID 08/17/15 [History] Olmesartan Medoxomil [Benicar] 20 mg PO QAM 08/17/15 [History] Pantoprazole Sodium [Protonix] 40 mg PO QAM 08/17/15 [History] SitaGLIPtin [Januvia] 100 mg PO QAM 08/17/15 [History] Sotalol [Betapace] 80 mg PO QAM 08/17/15 [History] Temazepam [Restoril] 30 mg PO HS 08/17/15 [History] Albuterol Neb [Proventil Neb] 2.5 mg IH TID PRN 11/02/15 [History] Albuterol Sulfate [Proair Hfa] 2 puff IH Q4H PRN 11/02/15 [History] Cyclobenzaprine [Flexeril] 10 mg PO HS 11/02/15 [History] Fluticasone/Salmeterol [Advair 250-50 Diskus] 1 puff IH BID 11/02/15 [History] [place]-3/Dha/Epa/Fish Oil [Fish Oil Dr 500 mg Softgel] 1,000 mg PO BID 11/02/15 [ History] Potassium Chloride [K-Tab ER] 20 meq PO DAILY 11/02/15 [History] Oxygen 2 l .ROUTE AD PRN 07/18/16 [History] Ipratropium [place] 1 spray NS DAILY 11/24/16 [History] Alprazolam [Xanax 0.5 MG Tablet] 0.5 mg PO BID PRN #6 tablet 11/30/16 [Rx] HYDROcodone/Acet 7.5/325 mg [[place] 7.5-325 mg] 1 tab PO TID PRN #6 tablet [Rx] Allergies/Adverse Reactions: Allergies Penicillins Allergy (Verified 11/24/16 20:32) arm swelling Procedures/tests Complete & Pending: Procedures Performed prior 72 hours Category Date Time Status CT abd pelvis w iv no oral [CT] Routine Cat Scan 11/27/16 18:21 Completed Date of admission: 11/25/16 06:36 Primary care physician: Andres Gleason MD Consults: 11/25/16 10:10 Consult to Urology [CONS] Routine Consulting Provider: Urology Roxana Reason for Consult: here for SOB and confusion. Hb 7.7 (new). Dumas in place - hematuria noted. Hx bladder cancer removal per Dr Calixto 05/18/16. she's unable to give reliable hx. Time Notified: 10:11 Call Completed: Yes 11/27/16 18:23 Consult to Gastroenterology [CONS] Routine Consulting Provider: Gastroentergrace Schmidt Reason for Consult: anemia of unknown etiology; 2 units of PRBC's. Time Notified: 18:24 Call Completed: Yes 11/28/16 11:03 Consult to Occupational Therapy [CONS] Routine Comment: Evaluate, develop and implement POC Consult to Physical Therapy [CONS] Routine Comment: Evaluate, develop and implement POC 11/28/16 11:28 Consult to Print Shop Assistant [CONS] Routine Reason for SW Consult: Discharge planning Discharging clinician: Tracey Jacob Anticipated date of discharge: 11/30/16 - Patient Status Disposition: Transfer SNF Condition: Good Functional capacity at discharge: uses cane/walker Overall status at discharge: patient is progressing back to baseline - Discharge Instructions Follow Up With: Andres Gleason MD [Primary Care Provider] - 12/04/16 9:45 am (hospital follow up webrequested ) Additional Instructions: Patient will need to have a repeat chest x-ray in the next 3 days to assess pleural effusions. Patient has a disc to compare. Patient needs to follow-up with urology for hematuria in the next few days. She has been seen by Dr. Calixto here at [place], and I have also spoken with Dr. Chambers about her case. Patient has A. fib. Her Coumadin has been stopped due to the hematuria. She will need to be seen and have Coumadin restarted as soon as cleared by urology. Continue normal home medications. Patient wears 2 L of oxygen at all times. Have patient return to closest ER if she has any increasing shortness of breath , increasing peripheral edema, increasing hematuria, fever, or for any other problems or concerns. - Diet and Activity Activity: increase activity as tolerated, wear oxygen at all times Diet: diabetic diet Interval History: Patient was initially admitted on November 25 for shortness of breath and confusion. She has a history of A. fib, COPD, CVA, diabetes, hyperlipidemia, hypertension, recent subdural hematoma. Follow-up CT shows significant resolution of hematoma. Patient was confused and drowsy the first couple of days that she was here. Family reported shortness of breath and confusion for about a week since she was discharged from the group home [facility]. She reports dyspnea on exertion and had increasing use of her inhalers at home with frequent nonproductive cough. Hospital course: Ms. Fleming is a 76 year old female - Time Spent with Patient Total time spent providing and/or coordinating discharge services: Less than 30 minutes - Constitutional Vitals: Temp Pulse Resp BP Pulse Ox 97.9 F 70 14 116/75 98 11/30/16 11:16 11/30/16 11:16 11/30/16 11:16 11/30/16 11:16 11/30/16 11:16 General appearance: Present: cooperative, A&O X 2, pleasant, no acute distress, answers questions appropriately - Head Head exam: Present: normal inspection - Eye Eye exam: Present: normal appearance, conjuntiva pink - ENT ENT exam: Present: mucous membranes moist, normal exam - Neck Neck exam general surgery: Present: normal inspection. Absent: lymphadenopathy , tenderness - Respiratory Respiratory exam: Present: decreased breath sounds, wheezes. Absent: respiratory distress, rhonchi, stridor - Cardiovascular Cardiovascular exam: Present: RRR, +S1, +S2 - GI/Abdominal GI/Abdominal exam: Present: soft. Absent: distended, hepatomegaly, tenderness - Extremities Exam Extremities exam: Present: warm, radial pulses palpable and symetrical. Absent : normal inspection, mottling, pedal edema - Neurological Exam Neurological exam: Present: alert, oriented X3. Absent: motor sensory deficit, no focal deficits
--- NOTE | 2016-11-30 13:53 | Physician Discharge Referral ---
ExtendedCare Referral Info Transfer To: [facility] Provider in Charge after Transfer: PCP Institutional Level of Care: Skilled - Diagnosis (1) Hematuria Status: Acute (2) Atrial fibrillation Priority: Secondary Status: Chronic (3) Acute on chronic respiratory failure Priority: Secondary Status: Chronic (4) Congestive heart failure Priority: Secondary Status: Chronic (5) Diabetes mellitus Priority: Secondary Status: Chronic (6) Anemia Priority: Secondary Status: Chronic (7) HTN (hypertension) Priority: Secondary Status: Chronic (8) DVT prophylaxis Priority: Secondary Status: Acute Expected Duration of Placement: 30 days Prognosis: Good Aware of Diagnosis: Patient Aware of Prognosis: Family - Transfer Medications Prescriptions: Alprazolam [Xanax 0.5 MG Tablet] 0.5 mg PO BID PRN #6 tablet PRN Reason: Anxiety HYDROcodone/Acet 7.5/325 mg [[place] 7.5-325 mg] 1 tab PO TID PRN #6 tablet PRN Reason: Pain Home Medications: Atorvastatin Calcium [Lipitor] 20 mg PO QPM 08/17/15 [History] Citalopram [CeleXA] 40 mg PO DAILY 08/17/15 [History] Cyclobenzaprine HCl 5 mg PO BID 08/17/15 [History] Furosemide [Lasix] 40 mg PO QAM 08/17/15 [History] Gabapentin [Neurontin] 300 mg PO TID 08/17/15 [History] Hydrochlorothiazide 25 mg PO DAILY 08/17/15 [History] Lisinopril [Zestril] 20 mg PO QAM 08/17/15 [History] Metformin HCl [Glucophage] 1,000 mg PO BID 08/17/15 [History] Olmesartan Medoxomil [Benicar] 20 mg PO QAM 08/17/15 [History] Pantoprazole Sodium [Protonix] 40 mg PO QAM 08/17/15 [History] SitaGLIPtin [Januvia] 100 mg PO QAM 08/17/15 [History] Sotalol [Betapace] 80 mg PO QAM 08/17/15 [History] Temazepam [Restoril] 30 mg PO HS 08/17/15 [History] Albuterol Neb [Proventil Neb] 2.5 mg IH TID PRN 11/02/15 [History] Albuterol Sulfate [Proair Hfa] 2 puff IH Q4H PRN 11/02/15 [History] Cyclobenzaprine [Flexeril] 10 mg PO HS 11/02/15 [History] Fluticasone/Salmeterol [Advair 250-50 Diskus] 1 puff IH BID 11/02/15 [History] [place]-3/Dha/Epa/Fish Oil [Fish Oil Dr 500 mg Softgel] 1,000 mg PO BID 11/02/15 [ History] Potassium Chloride [K-Tab ER] 20 meq PO DAILY 11/02/15 [History] Oxygen 2 l .ROUTE AD PRN 07/18/16 [History] Ipratropium [place] 1 spray NS DAILY 11/24/16 [History] Alprazolam [Xanax 0.5 MG Tablet] 0.5 mg PO BID PRN #6 tablet 11/30/16 [Rx] HYDROcodone/Acet 7.5/325 mg [[place] 7.5-325 mg] 1 tab PO TID PRN #6 tablet [Rx] Allergies/Adverse Reactions: Allergies Penicillins Allergy (Verified 11/24/16 20:32) arm swelling - Respiratory Orders Oxygen / L per min (2 liters) Smoking Cessation: Smoking cessation has been advised. For more information, call the [place] Tobacco Quit Line at 2-651-GJZI-NOW. - Lab Orders Lab Orders: Other (include drug levels w/frequency) - Advance Directives Code Status: Full Code - Mobility Orders Ambulate - Rehabiliation Orders Rehab Potential: Good Rehab Orders: Evaluation for Physical Therapy, Evaluation for Occupational Therapy Other: Nursing services - Diet Orders No Concentrated Sweets, Cardiac CERTIFICATION: I certify that the transfer of the above named patient to an Extended Care Facility is necessary for the continuing treatment of the diagnosis listed. The above information is true and accurate reflection of patient's current condition. Confidential - Redisclosure prohibited without a patient's written consent.
[2016-11-30] MEDS ORDERED: Furosemide 20 MG/2 ML VIAL IVP ONE (14:35)
[2016-12-01] MEDS ORDERED: Furosemide 20 MG/2 ML VIAL IVP ONE (14:35)
== END 2016-11-30 16:55 | DRG 291 ==
LOC: 3BNU 19:05 → EMEROO 19:05 → 3BNU 23:07
PROVIDERS: ADMIT Pediatrics; ATTEND Nurse Practitioner Family